=== PATIENT | male | born 1960 | race Caucasian/White ===

== ENCOUNTER 2018-09-09 04:05 | Emergency (ER) | payer BC ==
[2018-09-09] MEDS ORDERED: Sodium Chloride 0.9% 1,000 ML IV ONE (04:24)
[2018-09-09] MEDS ORDERED: fentaNYL 100 MCG/2 ML SDV IVPUSH SCH (04:30)
--- NOTE | 2018-09-09 04:30 | EDM.PDOC ---
ED HPI GENERAL MEDICAL PROBLEM - General Chief Complaint: General Stated Complaint: abd pain Time Seen by Provider: 09/09/18 04:18 Source of Information: Reports: Patient History Limitations: Reports: No Limitations - History of Present Illness INITIAL COMMENTS - FREE TEXT/NARRATIVE: Duy is a 58 year old male who presents to the ED with c/o generalized abdominal pain. He reports he had episode last night about 0100 in which he experienced short episode of sharp pain. Reports this went away and his whole abdomen seemed to ache. Reports continued throughout the day, but wasn't severe. Reports then around 0300 this morning experienced the same sharp pain, but it seemed to last a little longer. He reports he typically only eats 1 meal/ day and the pain started about the same time the last few nights following what he ate. Reports he was a little nauseated and felt like he could vomit, but he hasn't. Denies any diarrhea. LBM was yesterday morning. Reports he has daily bowel movements in the mornings. Has not had any fever or chills. Reports he was able to eat ok throughout the day. Denies any significant PMH. Does report ETOH use 3-4x/month with heavy drinking. Onset Date: 09/09/18 Onset Time: 03:00 Duration: Intermittent Location: Reports: Abdomen (generalized) Quality: Reports: Ache, Sharp Severity: Severe Improves with: Reports: None Worsens with: Reports: None Associated Symptoms: Reports: Nausea/Vomiting. Denies: Confusion, Chest Pain, Cough, cough w sputum, Diaphoresis, Fever/Chills, Headaches, Loss of Appetite, Malaise, Rash, Seizure, Shortness of Breath, Syncope, Weakness Abdominal Pain Score (Numeric/FACES): 7 - Related Data Allergies Allergy/AdvReac Type Severity Reaction Status Date / Time No Known Allergies Allergy Verified 09/09/18 04:09 Home Meds: Home Meds Allopurinol 100 mg PO DAILY 08/31/13 [History] Lisinopril/Hydrochlorothiazide [Lisinopril-Hctz 10-12.5 mg Tab] 1 mg PO DAILY [History] amLODIPine Besylate [Amlodipine Besylate] 10 mg PO DAILY 08/31/13 [History] atorvaSTATin [Lipitor] 20 mg PO BEDTIME #30 tab 05/12/14 [Rx] oxyCODONE 5 mg PO Q4H PRN #20 tab 09/09/18 [Rx] Past Medical History Cardiovascular History: Reports: High Cholesterol, Hypertension Musculoskeletal History: Reports: Gout - Past Surgical History Musculoskeletal Surgical History: Reports: Shoulder Surgery Social & Family History - Family History Family Medical History: Noncontributory - Caffeine Use Caffeine Use: Reports: Soda - Alcohol Use Days Per Week of Alcohol Use: 2 Number of Drinks Per Day: 8 Total Drinks Per Week: 16 - Recreational Drug Use Recreational Drug Use: No ED ROS GENERAL - Review of Systems Review Of Systems: ROS reveals no pertinent complaints other than HPI. ED EXAM, GENERAL - Physical Exam Exam: See Below Exam Limited By: No Limitations General Appearance: Alert, WD/WN, No Apparent Distress Eye Exam: Bilateral Eye: EOMI, Normal Fundi, Normal Inspection, PERRL Head: Atraumatic, Normocephalic Neck: Normal Inspection, Supple, Non-Tender, Full Range of Motion Respiratory/Chest: No Respiratory Distress, Lungs Clear, Normal Breath Sounds, No Accessory Muscle Use, Chest Non-Tender Cardiovascular: Normal Peripheral Pulses, Regular Rate, Rhythm, No Edema, No Gallop, No JVD, No Murmur, No Rub GI/Abdominal: Normal Bowel Sounds, No Organomegaly, No Distention, No Mass, Guarding, Tender (generalized), Hernia (umbilical). No: Hepatomegaly Back Exam: Normal Inspection, Full Range of Motion. No: CVA Tenderness (L), CVA Tenderness (R) Extremities: Normal Inspection, Normal Range of Motion, Non-Tender, Normal Capillary Refill, No Pedal Edema Neurological: Alert, Oriented, CN II-XII Intact, Normal Cognition, Normal Gait, Normal Reflexes, No Motor/Sensory Deficits Psychiatric: Normal Affect, Normal Mood Skin Exam: Warm, Dry, Intact, Normal Color, No Rash Lymphatic: No Adenopathy Course - Vital Signs Last Recorded V/S: Last Vital Signs Temp 96.8 F 09/09/18 12:30 Pulse 70 09/09/18 12:30 Resp 18 09/09/18 12:30 BP 132/72 09/09/18 12:30 Pulse Ox 100 09/09/18 12:30 - Orders/Labs/Meds Orders: Active Orders 24 hr Category Date Time Status Abdomen Comp [US] Stat Exams 05/20/19 04:51 Taken Abdomen Pelvis w Cont [CT] Stat Exams 09/09/18 11:34 Taken HEPATITIS PANEL (4) [REF] Stat Lab 09/09/18 13:39 Received UA RFX TRENT AND CULT IF INDIC [URIN] Stat Lab 09/09/18 04:36 Ordered UA W/MICROSCOPIC [URIN] Stat Lab 09/09/18 04:36 Ordered Labs: Laboratory Tests 09/09/18 09/09/18 09/09/18 Range/Units 04:09 04:09 04:24 WBC 9.1 (5.0-10.0) 10^3/uL RBC 4.83 (4.50-6.00) 10^6/uL Hgb 15.8 (14.0-18.0) g/dL Hct 44.6 (40.0-54.0) % MCV 92.3 (82.0-94.0) fL MCH 32.7 H (27.0-32.0) pg MCHC 35.4 (33.0-38.0) g/dL RDW Coeff of [place] 13.4 (11.0-15.0) % Plt Count 208 (150-400) 10^3/uL Neut % (Auto) 73.2 (35-85) % Lymph % (Auto) 15.1 (10-55) % [place] % (Auto) 9.2 (0-16) % Eos % (Auto) 2.2 (0-5) % Baso % (Auto) 0.3 (0-3) % Neut # (Auto) 6.65 (1.80-7.00) 10^3/uL Lymph # (Auto) 1.37 (1.00-4.80) 10^3/uL [place] # (Auto) 0.84 H (0.00-0.80) 10^3/uL Eos # (Auto) 0.20 (0.00-0.45) 10^3/uL Baso # (Auto) 0.03 10^3/uL Sodium 139 (136-145) mEq/L Potassium 3.7 (3.5-5.0) mEq/L Chloride 101 (98-106) mEq/L Carbon Dioxide 27 (21-32) mmol/L BUN 14 (7-18) mg/dL Creatinine 1.4 H (0.7-1.3) mg/dL Est Cr Clr Drug Dosing 63.13 mL/min Estimated GFR (MDRD) 52 L (>=60) mL/min Glucose 145 H D (75-99) mg/dL Calcium 9.4 (8.4-10.1) mg/dL Total Bilirubin 3.6 H (0.0-1.0) mg/dL AST 397 H* (15-37) U/L ALT 341 H* (12-78) U/L Alkaline Phosphatase 146 H (46-116) U/L Troponin I < 0.017 (0.00-0.06) ng/mL C-Reactive Protein < 0.2 L (0.2-0.8) mg/dL Total Protein 7.4 (6.4-8.2) g/dL Albumin 4.1 (3.4-5.0) g/dL Amylase 45 (25-115) U/L Lipase 221 (73-393) U/L Urine Color Dark yellow (YELLOW) Urine Appearance Clear (CLEAR) Urine pH 5.5 (4.5-8.0) Ur Specific [place] 1.025 H (1.003-1.020) Urine Protein Trace H (NEGATIVE) mg/dL Urine Glucose (UA) 100 H (NEGATIVE) mg/dL Urine Ketones Trace H (NEGATIVE) mg/dL Urine Occult Blood Negative (NEGATIVE) Urine Nitrite Negative (NEGATIVE) Urine Bilirubin Moderate H (NEGATIVE) Urine Urobilinogen 2.0 H (0.2-1.0) EU/dL Ur Leukocyte Esterase Negative (NEGATIVE) Urine RBC Not seen (0-5) /HPF Urine WBC Not seen (0-5) /HPF Ur Squamous Epith Cells Occasional H (NOT SEEN) /HPF Urine Bacteria Occasional H (NOT SEEN) /HPF Urine Mucus Occasional H (NOT SEEN) /HPF Ethyl Alcohol < 3 (0-3) mg/dL Meds: Medications Discontinued Medications Generic Name Dose Route Start Last Admin Trade Name Freq PRN Reason Stop Dose Admin Barium Sulfate 900 ml 09/09/18 13:03 09/09/18 14:51 Readi-Cat 2 PO 09/09/18 13:04 900 ml ONETIME ONE Administration Fentanyl 25 mcg 09/09/18 04:30 09/09/18 04:37 Sublimaze IVPUSH 25 mcg STAT JAI Administration Fentanyl 25 - 50 mcg 09/09/18 04:57 09/09/18 05:21 Sublimaze IVPUSH 50 mcg Q2H PRN Administration Pain Sodium Chloride 1,000 mls @ 999 mls/hr 09/09/18 04:24 09/09/18 04:38 Normal Saline IV 09/09/18 05:24 999 mls/hr .BOLUS ONE Administration Levofloxacin/Dextrose 500 mg/ 100 mls @ 100 mls/hr 09/09/18 05:00 09/09/18 05 :20 Premix IV 100 mls/hr Q24H JAI Administration Metronidazole 500 mg/ Premix 100 mls @ 100 mls/hr 09/09/18 05:00 09/09/18 13: 29 IV Not Given Q8H JAI Sodium Chloride 1,000 mls @ 150 mls/hr 09/09/18 05:00 09/09/18 05:21 Normal Saline IV 150 mls/hr ASDIRECTED JAI Administration Levofloxacin/Dextrose Confirm 09/09/18 05:18 09/09/18 05:28 Levaquin In D5w 500 Mg/100 Ml Administered 09/09/18 05:19 Not Given Dose 100 mls @ as directed IV .STK-MED ONE Iopamidol 200 ml 09/09/18 13:01 09/09/18 14:40 Isovue-370 (76%) IVPUSH 09/09/18 13:02 152 ml ONETIME ONE Administration - Re-Assessments/Exams Free Text/Narrative Re-Assessment/Exam: 09/09/18 04:54 Discussed lab results with patient. Patients liver enzymes and bilirubin critically elevated. Will keep patient in extended ED for abdominal US. Patient scheduled at 0900. Will keep NPO until then. 09/09/18 11:00 US results obtained. No evidence of cholecystitis or obstruction. Does show marked fatty infiltration of liver and moderate sized mural nodule of the gallbladder wall. Will proceed with CT abdomen/pelvis. Patient to drink oral contrast so will exceed 6 hr extended ED time frame. 09/09/18 13:15 Patient kept in extended ED for longer than expected due to need for further testing. CT abd/pelvis will be performed at 2:30 to allow time for oral contrast. 09/09/18 15:30 CT abdomen/pelvis results obtained. CT negative for acute findings. Does show fatty liver. Discussed results with patient. After further discussion with patient and patients daughter, it is confirmed that patient has strong history of ETOH abuse. He initially told me he drinks 3-4 days/month. Daughter reports it is 3-4 x/month that last a week at a time. He reports he has been sober for the past week as he was planning to go to treatment. Given this scenario, likely acute alcoholic hepatitis. Discussed case with Dr. Beverly, who recommends referral to general surgery for cholecystectomy given nodule, and further confirmed that patient has had ETOH problem for number of years, so likely just acute alcoholic hepatitis. Will refer to Dr. Viera (general surgeon) for possible cholecystectomy and liver biopsy. Did obtain hepatitis panel as well, but less favored given scenario. Strongly recommended to patient that he abstain from ETOH. Patient verbalized understanding and reports he is motivated to quit and this is "wake up call" for him. Departure - Departure Time of Disposition: 16:28 Disposition: Home, Self-Care 01 Condition: Good, Fair Clinical Impression: Alcoholic hepatitis Qualifiers: Ascites presence: without ascites Qualified Code(s): K70.10 - Alcoholic hepatitis without ascites - Discharge Information *PRESCRIPTION DRUG MONITORING PROGRAM REVIEWED*: Not Applicable *COPY OF PRESCRIPTION DRUG MONITORING REPORT IN PATIENT ESTEPHANIA: Not Applicable Prescriptions: oxyCODONE 5 mg PO Q4H PRN #20 tab PRN Reason: Pain Instructions: Alcoholic Liver Disease, [id number] Referrals: PCP,None [Ordering Only Provider] - Forms: ED Department Discharge Additional Instructions: - No Tylenol (acetaminophen) - Abstain from alcohol - Push fluids - Oxycodone 1 tab every 4 hours as needed for pain - Follow up with PCP Ag KULKARNI in the next few weeks to recheck liver enzymes - We will contact you tomorrow with f/u instructions for Dr. Viera ([place] [facility] [place] - My Orders Last 24 Hours: My Active Orders 09/09/18 04:36 UA RFX TRENT AND CULT IF INDIC [URIN] Stat UA W/MICROSCOPIC [URIN] Stat 09/09/18 04:51 Abdomen Comp [US] Stat 09/09/18 13:39 HEPATITIS PANEL (4) [REF] Stat - Assessment/Plan Last 24 Hours: My Active Orders 09/09/18 04:36 UA RFX TRENT AND CULT IF INDIC [URIN] Stat UA W/MICROSCOPIC [URIN] Stat 09/09/18 04:51 Abdomen Comp [US] Stat 09/09/18 13:39 HEPATITIS PANEL (4) [REF] Stat
[2018-09-09 04:37] LABS: CHLORIDE,CL 101 mEq/L (98-106); SODIUM,NA 139 mEq/L (136-145)
[2018-09-09] MEDS ORDERED: fentaNYL 100 MCG/2 ML SDV IVPUSH PRN (04:57)
[2018-09-09] MEDS ORDERED: Levofloxacin/Dextrose 5%-Water 500 MG in Premix Bag 1 BAG IV SCH (05:00)
[2018-09-09] MEDS ORDERED: Sodium Chloride 0.9% 1,000 ML IV SCH (05:00)
[2018-09-09] MEDS ORDERED: Levofloxacin/Dextrose 5%-Water 100 ML IV ONE (05:18)
[2018-09-09] MEDS: metroNIDAZOLE/Normal Saline 500 MG in Premix Bag 1 BAG IV SCH ×2 (05:20→13:29)
[2018-09-09] MEDS ORDERED: Iopamidol 755 Mg/ML 100 ML Bottle IVPUSH ONE (13:01)
[2018-09-09] MEDS ORDERED: Barium Sulfate Oral Susp 450 ML Bottle PO ONE (13:03)
== END 2018-09-09 16:35 | disposition home or self-care (01) ==
LOC: SUPCPDRO 04:05 → CC.ED 04:05
DX: K70.10 Alcoholic hepatitis without ascites (principal); I10 Essential (primary) hypertension; E78.00 Pure hypercholesterolemia, unspecified; Z79.899 Other long term (current) drug therapy
CPT/HCPCS: 36415; 74177; 76700; 80053; 80074; 81001; 82150; 83690; 84484; 85025; 86140; 96361; 96365; 96367; 96375; 96376; 99284-25; A4217; A9270-GY; G0480; J1956; J3010; J3490; J7030; Q9967

== ENCOUNTER 2018-09-22 19:26 | Emergency (ER) | payer BC ==
[2018-09-22] MEDS ORDERED: fentaNYL 100 MCG/2 ML SDV IVPUSH PRN (19:41)
[2018-09-22] MEDS ORDERED: Sodium Chloride 0.9% 1,000 ML IV SCH (19:45)
--- NOTE | 2018-09-22 19:55 | EDM.PDOC ---
ED HPI GENERAL MEDICAL PROBLEM - General Chief Complaint: Abdominal Pain Stated Complaint: ""Having abdominal pain" Time Seen by Provider: 09/22/18 19:50 Source of Information: Reports: Patient History Limitations: Reports: No Limitations - History of Present Illness INITIAL COMMENTS - FREE TEXT/NARRATIVE: Raghav is a 58 yo male who presents to the ED via private vehicle with concerns of worsening abdominal pain. States the pain started around 2:00pm this afternoon and has progressively worse. He underwent an umbilical hernia and cholecystectomy on Sunday with Dr. Viera in [place]. There was some concern of the common bile duct being occluded and he was told he made a ERCP if it didn't open up. He states he did well on Sunday. Denies any vomiting. Admits last bowel movement was Sunday and has been passing gas without complications. States the pain is constant and then will get a sharp, severe pain. Pain does radiate into his back. Onset: Today Duration: Constant, Getting Worse Location: Reports: Abdomen Quality: Reports: Ache, Sharp, Stabbing - Related Data Allergies Allergy/AdvReac Type Severity Reaction Status Date / Time No Known Allergies Allergy Verified 09/22/18 20:55 Home Meds: Home Meds Allopurinol 100 mg PO DAILY 08/31/13 [History] Lisinopril/Hydrochlorothiazide [Lisinopril-Hctz 10-12.5 mg Tab] 1 mg PO DAILY [History] amLODIPine Besylate [Amlodipine Besylate] 10 mg PO DAILY 08/31/13 [History] atorvaSTATin [Lipitor] 20 mg PO BEDTIME #30 tab 09/01/13 [Rx] oxyCODONE 5 mg PO Q4H PRN #20 tab 09/09/18 [Rx] Past Medical History Cardiovascular History: Reports: High Cholesterol, Hypertension Musculoskeletal History: Reports: Gout - Past Surgical History GI Surgical History: Reports: Cholecystectomy, Hernia, Abdominal Musculoskeletal Surgical History: Reports: Shoulder Surgery Social & Family History - Family History Family Medical History: Noncontributory - Caffeine Use Caffeine Use: Reports: Soda ED ROS GENERAL - Review of Systems Review Of Systems: See Below Constitutional: Reports: Decreased Appetite. Denies: Fever HEENT: Reports: No Symptoms Respiratory: Denies: Shortness of Breath Cardiovascular: Reports: No Symptoms, Lightheadedness. Denies: Chest Pain, Palpitations GI/Abdominal: Reports: Abdominal Pain, Constipation, Distension, Flatus, Nausea. Denies: Bloody Stool, Diarrhea, Hematochezia, Melena, Vomiting : Reports: No Symptoms Musculoskeletal: Reports: Shoulder Pain (bilateral shoulder pain) Skin: Reports: No Symptoms Neurological: Reports: No Symptoms ED EXAM, GI/ABD - Physical Exam Exam: See Below Exam Limited By: No Limitations General Appearance: Alert, WD/WN, Moderate Distress Eyes: Bilateral: Normal Appearance Ears: Normal External Exam, Hearing Grossly Normal Nose: Normal Inspection, No Blood Throat/Mouth: Normal Lips, Normal Teeth, Normal Gums, No Airway Compromise, Other (dry oropharnyx) Head: Atraumatic, Normocephalic Neck: Normal Inspection, Supple Respiratory/Chest: No Respiratory Distress, Lungs Clear, Normal Breath Sounds, No Accessory Muscle Use Cardiovascular: Regular Rate, Rhythm, No Edema, No Murmur GI/Abdominal Exam: No Abnormal Bruit, No Mass, Distended, Guarding, Rigid, Tender, Abnormal Bowel Sounds (hypoactive). No: Splenomegaly Extremities: Normal Inspection Neurological: Alert, Oriented Psychiatric: Normal Affect, Normal Mood Skin Exam: Warm, Dry, Intact, Normal Color, No Rash. No: Jaundice Course - Vital Signs Last Recorded V/S: Last Vital Signs Temp 100.2 F 09/22/18 19:30 Pulse 58 L 09/22/18 19:30 Resp 20 09/22/18 19:30 BP 122/70 09/22/18 19:30 Pulse Ox 95 09/22/18 19:30 - Orders/Labs/Meds Orders: Active Orders 24 hr Category Date Time Status Abdomen 2V AP Flat Upright [CR] Stat Exams 09/22/18 20:01 Ordered Sodium Chloride 0.9% [Normal Saline] 1,000 ml Med 09/22/18 21:02 Active IV .BOLUS Sodium Chloride 0.9% [Normal Saline] 1,000 ml Med 09/22/18 19:45 Active IV ASDIRECTED Medication Orders Sodium Chloride (Normal Saline) 1,000 mls @ 999 mls/hr IV ASDIRECTED JAI Last Admin: 09/22/18 19:56 Dose: 999 mls/hr Sodium Chloride (Normal Saline) 1,000 mls @ 999 mls/hr IV .BOLUS ONE Stop: 09/22/18 22:02 Labs: Laboratory Tests 09/22/18 09/22/18 09/22/18 Range/Units 19:51 19:51 19:51 WBC 8.0 (5.0-10.0) 10^3/uL RBC 4.53 (4.50-6.00) 10^6/uL Hgb 15.0 (14.0-18.0) g/dL Hct 43.0 (40.0-54.0) % MCV 94.9 H (82.0-94.0) fL MCH 33.1 H (27.0-32.0) pg MCHC 34.9 (33.0-38.0) g/dL RDW Coeff of [place] 13.0 (11.0-15.0) % Plt Count 206 (150-400) 10^3/uL Neut % (Auto) 63.9 (35-85) % Lymph % (Auto) 18.5 (10-55) % [place] % (Auto) 14.8 (0-16) % Eos % (Auto) 2.0 (0-5) % Baso % (Auto) 0.8 (0-3) % Neut # (Auto) 5.12 (1.80-7.00) 10^3/uL Lymph # (Auto) 1.48 (1.00-4.80) 10^3/uL [place] # (Auto) 1.18 H (0.00-0.80) 10^3/uL Eos # (Auto) 0.16 (0.00-0.45) 10^3/uL Baso # (Auto) 0.06 10^3/uL Sodium 139 (136-145) mEq/L Potassium 3.5 (3.5-5.0) mEq/L Chloride 98 (98-106) mEq/L Carbon Dioxide 29 (21-32) mmol/L BUN 15 (7-18) mg/dL Creatinine 1.1 (0.7-1.3) mg/dL Est Cr Clr Drug Dosing TNP Estimated GFR (MDRD) > 60 (>=60) mL/min Glucose 114 H (75-99) mg/dL Lactic Acid 1.0 (0.4-2.0) mmol/L Calcium 9.4 (8.4-10.1) mg/dL Magnesium (1.8-2.4) mg/dL Total Bilirubin 5.6 H (0.0-1.0) mg/dL AST 350 H* (15-37) U/L ALT 505 H* (12-78) U/L Alkaline Phosphatase 307 H (46-116) U/L C-Reactive Protein 0.6 (0.2-0.8) mg/dL Total Protein 6.7 (6.4-8.2) g/dL Albumin 3.8 (3.4-5.0) g/dL Amylase 679 H (25-115) U/L Lipase 60961 H (73-393) U/L Urine Color (YELLOW) Urine Appearance (CLEAR) Urine pH (4.5-8.0) Ur Specific [place] (1.003-1.020) Urine Protein (NEGATIVE) mg/dL Urine Glucose (UA) (NEGATIVE) mg/dL Urine Ketones (NEGATIVE) mg/dL Urine Occult Blood (NEGATIVE) Urine Nitrite (NEGATIVE) Urine Bilirubin (NEGATIVE) Urine Urobilinogen (0.2-1.0) EU/dL Ur Leukocyte Esterase (NEGATIVE) 09/22/18 09/22/18 Range/Units 19:51 20:37 WBC (5.0-10.0) 10^3/uL RBC (4.50-6.00) 10^6/uL Hgb (14.0-18.0) g/dL Hct (40.0-54.0) % MCV (82.0-94.0) fL MCH (27.0-32.0) pg MCHC (33.0-38.0) g/dL RDW Coeff of [place] (11.0-15.0) % Plt Count (150-400) 10^3/uL Neut % (Auto) (35-85) % Lymph % (Auto) (10-55) % [place] % (Auto) (0-16) % Eos % (Auto) (0-5) % Baso % (Auto) (0-3) % Neut # (Auto) (1.80-7.00) 10^3/uL Lymph # (Auto) (1.00-4.80) 10^3/uL [place] # (Auto) (0.00-0.80) 10^3/uL Eos # (Auto) (0.00-0.45) 10^3/uL Baso # (Auto) 10^3/uL Sodium (136-145) mEq/L Potassium (3.5-5.0) mEq/L Chloride (98-106) mEq/L Carbon Dioxide (21-32) mmol/L BUN (7-18) mg/dL Creatinine (0.7-1.3) mg/dL Est Cr Clr Drug Dosing Estimated GFR (MDRD) (>=60) mL/min Glucose (75-99) mg/dL Lactic Acid (0.4-2.0) mmol/L Calcium (8.4-10.1) mg/dL Magnesium 1.9 (1.8-2.4) mg/dL Total Bilirubin (0.0-1.0) mg/dL AST (15-37) U/L ALT (12-78) U/L Alkaline Phosphatase (46-116) U/L C-Reactive Protein (0.2-0.8) mg/dL Total Protein (6.4-8.2) g/dL Albumin (3.4-5.0) g/dL Amylase (25-115) U/L Lipase (73-393) U/L Urine Color Yellow (YELLOW) Urine Appearance Clear (CLEAR) Urine pH 5.5 (4.5-8.0) Ur Specific [place] <= 1.005 (1.003-1.020) Urine Protein Negative (NEGATIVE) mg/dL Urine Glucose (UA) Negative (NEGATIVE) mg/dL Urine Ketones Negative (NEGATIVE) mg/dL Urine Occult Blood Negative (NEGATIVE) Urine Nitrite Negative (NEGATIVE) Urine Bilirubin Small H (NEGATIVE) Urine Urobilinogen 4.0 H (0.2-1.0) EU/dL Ur Leukocyte Esterase Negative (NEGATIVE) Meds: Medications Generic Name Dose Route Start Last Admin Trade Name Freq PRN Reason Stop Dose Admin Sodium Chloride 1,000 mls @ 999 mls/hr 09/22/18 19:45 09/22/18 19:56 Normal Saline IV 999 mls/hr ASDIRECTED JAI Administration Sodium Chloride 1,000 mls @ 999 mls/hr 09/22/18 21:02 Normal Saline IV 09/22/18 22:02 .BOLUS ONE Discontinued Medications Generic Name Dose Route Start Last Admin Trade Name Freq PRN Reason Stop Dose Admin Fentanyl 25 mcg 09/22/18 19:41 09/22/18 19:56 Sublimaze IVPUSH 25 mcg Q6H PRN Administration Pain/Fever Fentanyl 50 mcg 09/22/18 21:04 Sublimaze IVPUSH 09/22/18 21:05 ONETIME ONE Fentanyl 50 mcg 09/22/18 21:04 Sublimaze IVPUSH 09/22/18 21:05 ONETIME ONE Departure - Departure Time of Disposition: 21:16 Disposition: DC/Tfer to [facility] 02 Clinical Impression: Acute pancreatitis, Status post cholecystectomy - Discharge Information Forms: ED Department Discharge - Problem List & Annotations (1) Acute pancreatitis SNOMED Code(s): 791408534 Code(s): K85.90 - ACUTE PANCREATITIS WITHOUT NECROSIS OR INFECTION, UNSP Status: Acute Qualifiers: Pancreatitis type: biliary Acute pancreatitis complication: no infection or necrosis Qualified Code(s): K85.10 - Biliary acute pancreatitis without necrosis or infection (2) Status post cholecystectomy SNOMED Code(s): 757802869, 14400566, 355749427 Code(s): Z90.49 - ACQUIRED ABSENCE OF OTHER SPECIFIED PARTS OF DIGESTIVE TRACT Status: Acute - My Orders Last 24 Hours: My Active Orders 09/22/18 19:45 Sodium Chloride 0.9% [Normal Saline] 1,000 ml IV ASDIRECTED 09/22/18 20:01 Abdomen 2V AP Flat Upright [CR] Stat 09/22/18 21:02 Sodium Chloride 0.9% [Normal Saline] 1,000 ml IV .BOLUS - Assessment/Plan Last 24 Hours: My Active Orders 09/22/18 19:45 Sodium Chloride 0.9% [Normal Saline] 1,000 ml IV ASDIRECTED 09/22/18 20:01 Abdomen 2V AP Flat Upright [CR] Stat 09/22/18 21:02 Sodium Chloride 0.9% [Normal Saline] 1,000 ml IV .BOLUS Plan: Consulted with Dr. English, hospitalist, [facility] after concerns of occlusion of the common bile duct. Dr. English kindly accepted transfer as he agreed Raghav will likely need an ERCP. We will transfer via ALS for pain control and IV fluids en route. Discussed risks and benefits of transfer with Raghav. Risks of transfer: worsening of pain/condition or MVA. Benefits of transfer: appropriate diagnostics/specialists, surgical intervention if needed, ERCP, and improvement of condition. Risks of non-transfer: worsening of conditio, no appropriate specialists or intervention if needed. Benefits of non-transfer: staying in a familiar environment and close to home. Raghav verbalized understanding and is in agreement with transfer.
[2018-09-22 20:36] LABS: CHLORIDE,CL 98 mEq/L (98-106); SODIUM,NA 139 mEq/L (136-145)
[2018-09-22] MEDS ORDERED: Sodium Chloride 0.9% 1,000 ML IV ONE (21:02)
[2018-09-22] MEDS ORDERED: fentaNYL 100 MCG/2 ML SDV IVPUSH ONE ×2 (21:04→21:19)
[2018-09-22] MEDS: fentaNYL 100 MCG/2 ML SDV IVPUSH ONE ×2 (21:14→21:23)
== END 2018-09-22 21:50 ==
LOC: CC.ED 19:26
DX: K85.90 Acute pancreatitis without necrosis or infection, unspecified (principal); Z90.49 Acquired absence of other specified parts of digestive tract; I10 Essential (primary) hypertension; E78.00 Pure hypercholesterolemia, unspecified; Z79.899 Other long term (current) drug therapy
CPT/HCPCS: 36415; 74019; 80053; 81003; 82150; 83605; 83690; 83735; 85025; 86140; 96361; 96374; 96376; 99285; J3010; J7030

== ENCOUNTER 2020-06-22 00:35 | Observation (INO) | payer BC ==
[~2020-06-22 00:35] MED LIST: Ondansetron 4 MG/2 ML SDV ONE
--- NOTE | 2020-06-22 00:47 | EDM.PDOC ---
ED HPI GENERAL MEDICAL PROBLEM - General Chief Complaint: Trauma Stated Complaint: trauma Time Seen by Provider: 06/22/20 00:35 Source of Information: Reports: Patient, EMS History Limitations: Reports: No Limitations - History of Present Illness INITIAL COMMENTS - FREE TEXT/NARRATIVE: Duy is a 59 yo male who presents to the ED via EMS after sustaining a fall down approximately 6 steps. Reports his glasses were fogged up after coming in from outside and he missed a step due to this. He reports he has been drinking whiskey tonight. Reports last drink was at 5 pm and is unsure how much he has drank this evening. He denies hitting his head. Denies LOC, however family report he did have 1-2 second brief episodes of LOC once they arrived at his house. EMS denies any LOC while on scene or enroute. GCS 15 upon arrival. Does not appear intoxicated. He reports due to his left leg pain, he had to crawl to his bedroom to get his phone to call his sister. He denies any complaints other than left knee pain. Is unable to lift left leg or move leg without significant pain. C collar was placed upon arrival to ED as trauma code was called. Patient was moving neck without difficulty and denied pain, however was intoxicated. Sent for head and c-spine CT. Patient with swelling noted to proximal medial aspect of left knee, very tender to touch. Sensation and circulation intact throughout. Palpation throughout reveals no other areas of tenderness. He is alert and oriented and talking in full complete sentences. Onset: Today, Sudden Onset Date: 06/21/20 Onset Time: 23:30 Duration: Constant Location: Reports: Lower Extremity, Left Quality: Reports: Sharp, Throbbing Severity: Moderate Associated Symptoms: Reports: No Other Symptoms. Denies: Confusion, Chest Pain, Cough, cough w sputum, Diaphoresis, Fever/Chills, Headaches, Loss of Appetite, Malaise, Nausea/Vomiting, Rash, Seizure, Shortness of Breath, Syncope, Weakness Left Knee Pain Score (Numeric/FACES): 5 - Related Data Allergies Allergy/AdvReac Type Severity Reaction Status Date / Time No Known Allergies Allergy Verified 06/22/20 00:40 Home Meds: Home Meds allopurinoL [Allopurinol] 100 mg PO DAILY 08/31/13 [History] amLODIPine Besylate [Amlodipine Besylate] 10 mg PO DAILY 08/31/13 [History] Furosemide [Lasix] 40 mg PO DAILY PRN 06/22/20 [History] Lisinopril/Hydrochlorothiazide [Lisinopril-Hctz 20-25 mg Tab] 1 each PO DAILY 06/22/20 [History] Omeprazole 40 mg PO DAILY 06/22/20 [History] atorvaSTATin [Lipitor] 10 mg PO DAILY 06/22/20 [History] oxyCODONE HCl/Acetaminophen [Percocet 5-325 mg Tablet] 1 each PO Q6H PRN #20 tablet 06/22/20 [Rx] Past Medical History Cardiovascular History: Reports: High Cholesterol, Hypertension Musculoskeletal History: Reports: Gout Psychiatric History: Reports: Addiction (ETOH) - Past Surgical History GI Surgical History: Reports: Cholecystectomy, Hernia, Abdominal Musculoskeletal Surgical History: Reports: Shoulder Surgery Social & Family History - Family History Family Medical History: No Pertinent Family History - Tobacco Use Tobacco Use Status *Q: Current Every Day Tobacco User Tobacco Use Within Last Twelve Months: Smokeless Tobacco - Caffeine Use Caffeine Use: Reports: Soda - Alcohol Use Alcohol Use History: Yes Alcohol Use Frequency: Binges, Daily Review of Systems - Review of Systems Review Of Systems: Comprehensive ROS is negative, except as noted in HPI. ED EXAM, GENERAL - Physical Exam Exam: See Below Exam Limited By: No Limitations General Appearance: Alert, WD/WN, No Apparent Distress Eye Exam: Bilateral Eye: EOMI, Normal Fundi, Normal Inspection, PERRL Ears: Normal External Exam, Normal Canal, Hearing Grossly Normal, Normal TMs Nose: Normal Inspection, Normal Mucosa, No Blood Throat/Mouth: Normal Inspection, Normal Lips, Normal Teeth, Normal Gums, Normal Oropharynx, Normal Voice, No Airway Compromise Head: Atraumatic, Normocephalic Neck: Normal Inspection, Supple, Non-Tender, Full Range of Motion Respiratory/Chest: No Respiratory Distress, Lungs Clear, Normal Breath Sounds, No Accessory Muscle Use, Chest Non-Tender Cardiovascular: Normal Peripheral Pulses, Regular Rate, Rhythm, No Edema, No Gallop, No JVD, No Murmur, No Rub Peripheral Pulses: 2+: Dorsalis Pedis (L), Dorsalis Pedis (R) GI/Abdominal: Normal Bowel Sounds, Soft, Non-Tender, No Organomegaly, No Distention, No Abnormal Bruit, No Mass, Pelvis Stable Back Exam: Normal Inspection, Full Range of Motion, NT Extremities: No Pedal Edema, Normal Capillary Refill, Leg Pain (left knee, swelling/lump noted to proximal medial aspect of knee), Limited Range of Motion (left knee- unable to flex/extend) Neurological: Alert, Oriented, Normal Cognition, No Motor/Sensory Deficits Psychiatric: Normal Affect, Normal Mood Skin Exam: Warm, Dry, Intact, Normal Color, No Rash, Other (left great toenail with dried blood underneath) Course - Vital Signs Last Recorded V/S: Last Vital Signs Temp 97.7 F 06/22/20 19:49 Pulse 83 06/22/20 19:49 Resp 16 06/22/20 19:49 BP 127/68 06/22/20 19:49 Pulse Ox 94 L 06/22/20 19:49 - Orders/Labs/Meds Orders: Active Orders 24 hr Category Date Time Status Cervical Spine wo Cont [CT] Routine Exams 06/22/20 Taken Head wo Cont [CT] Routine Exams 06/22/20 00:28 Taken Knee 1V or 2V Lt [CR] Stat Exams 06/22/20 00:37 Taken Medication Orders Acetaminophen (Tylenol) 650 mg PO Q4H PRN PRN Reason: Pain (Mild 1-3)/fever Allopurinol (Zyloprim) 100 mg PO DAILY [facility] Last Admin: 06/22/20 11:36 Dose: 100 mg Documented by: FABIO Amlodipine Besylate (Norvasc) 10 mg PO DAILY [facility] Last Admin: 06/22/20 11:35 Dose: 10 mg Documented by: FABIO Atorvastatin Calcium (Lipitor) 10 mg PO DAILY [facility] Last Admin: 06/22/20 11:37 Dose: 10 mg Documented by: FABIO Chlordiazepoxide HCl (Librium) 10 mg PO TID [facility] Last Admin: 06/22/20 19:21 Dose: 10 mg Documented by: Admin: 06/22/20 14:46 Dose: 10 mg Documented by: Admin: 06/22/20 11:47 Dose: 10 mg Documented by: FABIO Furosemide (Lasix) 40 mg PO DAILY PRN PRN Reason: Edema Hydromorphone HCl (Dilaudid) 0.5 mg IVPUSH Q2H PRN PRN Reason: Pain (severe 7-10) Last Admin: 06/22/20 06:35 Dose: 0.5 mg Documented by: Admin: 06/22/20 03:36 Dose: 0.5 mg Documented by: GARFIELD Promethazine HCl 6.25 mg/ (Sodium Chloride) 50.25 mls @ 100 mls/hr IV Q6H PRN PRN Reason: Nausea/Vomiting Lorazepam (Ativan) 1 mg IVPUSH Q2H PRN PRN Reason: Withdrawal Symptoms Last Admin: 06/22/20 19:21 Dose: 1 mg Documented by: Admin: 06/22/20 14:50 Dose: 1 mg Documented by: FABIO Lisinopril/Hydrochlorothiazide [Lisinopril-Hctz 20- 25 Mg Tab Ptom 0 each PO DAILY [facility] Last Admin: 06/22/20 11:34 Dose: 1 each Documented by: FABIO Omeprazole [ Omeprazole] 40 Mg Cap Ptom 0 mg PO DAILY [facility] Last Admin: 06/22/20 11:33 Dose: 40 mg Documented by: FABIO Ondansetron HCl (Zofran) 4 mg IV Q6H PRN PRN Reason: Nausea/Vomiting Last Admin: 06/22/20 06:39 Dose: 4 mg Documented by: GARFIELD Oxycodone/Acetaminophen (Percocet 325-5 Mg) 1 tab PO Q4H PRN PRN Reason: Pain (moderate 4-6) Last Admin: 06/22/20 14:46 Dose: 1 tab Documented by: FABIO Pantoprazole Sodium (Protonix Iv) 40 mg IVPUSH Q24H [facility] Labs: Laboratory Tests 06/22/20 06/22/20 06/22/20 Range/Units 00:30 00:41 00:41 WBC 6.6 (5.0-10.0) 10^3/uL RBC 4.38 L (4.50-6.00) 10^6/uL Hgb 14.3 (14.0-18.0) g/dL Hct 40.9 (40.0-54.0) % MCV 93.4 (82.0-94.0) fL MCH 32.6 H (27.0-32.0) pg MCHC 35.0 (33.0-38.0) g/dL RDW Coeff of Catrachita 14.3 (11.0-15.0) % Plt Count 196 (150-400) 10^3/uL Neut % (Auto) 54.0 (35-85) % Lymph % (Auto) 33.7 (10-55) % [place] % (Auto) 9.1 (0-16) % Eos % (Auto) 2.7 (0-5) % Baso % (Auto) 0.5 (0-3) % Neut # (Auto) 3.57 (1.80-7.00) 10^3/uL Lymph # (Auto) 2.23 (1.00-4.80) 10^3/uL [place] # (Auto) 0.60 (0.00-0.80) 10^3/uL Eos # (Auto) 0.18 (0.00-0.45) 10^3/uL Baso # (Auto) 0.03 10^3/uL Sodium 139 (136-145) mEq/L Potassium 3.4 L (3.5-5.0) mEq/L Chloride 98 (98-106) mEq/L Carbon Dioxide 21 (21-32) mmol/L BUN 17 (7-18) mg/dL Creatinine 1.6 H D (0.7-1.3) mg/dL Est Cr Clr Drug Dosing TNP Estimated GFR (MDRD) 44 L (>=60) mL/min Glucose 129 H (75-99) mg/dL Calcium 8.7 (8.4-10.1) mg/dL Total Bilirubin 1.3 H (0.0-1.0) mg/dL AST 53 H (15-37) U/L ALT 61 (12-78) U/L Alkaline Phosphatase 64 (46-116) U/L Total Protein 7.2 (6.4-8.2) g/dL Albumin 4.2 (3.4-5.0) g/dL Urine Color Dark yellow (YELLOW) Urine Appearance Slightly cloudy (CLEAR) Urine pH 5.0 (4.5-8.0) Ur Specific [place] 1.020 (1.003-1.020) Urine Protein Negative (NEGATIVE) mg/dL Urine Glucose (UA) Negative (NEGATIVE) mg/dL Urine Ketones Trace H (NEGATIVE) mg/dL Urine Occult Blood Trace-intact H (NEGATIVE) Urine Nitrite Negative (NEGATIVE) Urine Bilirubin Negative (NEGATIVE) Urine Urobilinogen 0.2 (0.2-1.0) EU/dL Ur Leukocyte Esterase Negative (NEGATIVE) U Hyaline Cast (Auto) Many H (NOT SEEN) /LPF Urine RBC 0-5 (0-5) /HPF Urine WBC 0-5 (0-5) /HPF Ethyl Alcohol 332 H* (0-3) mg/dL Meds: Medications Generic Name Dose Route Start Last Admin Trade Name Freq PRN Reason Stop Dose Admin Acetaminophen 650 mg 06/22/20 02:55 Tylenol PO Q4H PRN Pain (Mild 1-3)/fever Allopurinol 100 mg 06/22/20 09:30 06/22/20 11:36 Zyloprim PO 100 mg DAILY [facility]AI Administration Amlodipine Besylate 10 mg 06/22/20 11:15 06/22/20 11:35 Norvasc PO 10 mg DAILY [facility] Administration Atorvastatin Calcium 10 mg 06/22/20 10:45 06/22/20 11:37 Lipitor PO 10 mg DAILY [facility] Administration Chlordiazepoxide HCl 10 mg 06/22/20 11:30 06/22/20 19:21 Librium PO 10 mg TID [facility]AI Administration Furosemide 40 mg 06/22/20 09:23 Lasix PO DAILY PRN Edema Hydromorphone HCl 0.5 mg 06/22/20 02:55 06/22/20 06:35 Dilaudid IVPUSH 0.5 mg Q2H PRN Administration Pain (severe 7-10) Promethazine HCl 6.25 mg/ 50.25 mls @ 100 mls/hr 06/22/20 08:00 Sodium Chloride IV Q6H PRN Nausea/Vomiting Lorazepam 1 mg 06/22/20 14:38 06/22/20 19:21 Ativan IVPUSH 1 mg Q2H PRN Administration Withdrawal Symptoms Lisinopril/ 0 each 06/22/20 09:30 06/22/20 11:34 Hydrochlorothiazide PO 1 each [Lisinopril-Hctz 20- DAILY [facility]AI Administration 25 Mg Tab Ptom Omeprazole [ 0 mg 06/22/20 11:15 06/22/20 11:33 Omeprazole] 40 Mg PO 40 mg Cap Ptom DAILY [facility] Administration Ondansetron HCl 4 mg 06/22/20 02:55 06/22/20 06:39 Zofran IV 4 mg Q6H PRN Administration Nausea/Vomiting Oxycodone/Acetaminophen 1 tab 06/22/20 14:36 06/22/20 14:46 Percocet 325-5 Mg PO 1 tab Q4H PRN Administration Pain (moderate 4-6) Pantoprazole Sodium 40 mg 06/23/20 08:00 Protonix Iv IVPUSH Q24H [facility]AI Discontinued Medications Generic Name Dose Route Start Last Admin Trade Name Freq PRN Reason Stop Dose Admin Fentanyl 50 mcg 06/22/20 01:01 06/22/20 01:08 Fentanyl IVPUSH 06/22/20 01:02 50 mcg ONETIME ONE Administration Multivitamins/Minerals 10 ml/ 1,015.2 mls @ 100 mls/hr 06/22/20 01:19 06/22/20 02:11 Folic Acid 1 mg/ Thiamine HCl IV 06/22/20 11:28 100 mls/hr 100 mg/ Magnesium Sulfate 2 gm ONETIME ONE Administration / Sodium Chloride Promethazine HCl 6.25 mg/ 100.25 mls @ 400 mls/hr 06/22/20 01:20 06/22/20 01:35 Sodium Chloride IV 06/22/20 01:35 400 mls/hr ONETIME ONE Administration Ketorolac Tromethamine 30 mg 06/22/20 07:45 06/22/20 08:16 Toradol IVPUSH 06/27/20 07:39 30 mg Q6H JAI Administration Lorazepam 2 mg 06/22/20 02:55 06/22/20 10:05 Ativan IVPUSH 2 mg Q4H PRN Administration Withdrawal Symptoms Ondansetron HCl 4 mg 06/22/20 00:49 06/22/20 00:55 Zofran IVPUSH 06/22/20 00:50 4 mg NOW STA Administration Ondansetron HCl Confirm 06/22/20 00:31 06/22/20 01:11 Zofran Administered 06/22/20 00:32 Not Given Dose 4 mg .ROUTE .STK-MED ONE Pantoprazole Sodium 40 mg 06/22/20 02:55 06/22/20 03:23 Protonix Iv IVPUSH 40 mg Q24H [facility] Administration - Re-Assessments/Exams Free Text/Narrative Re-Assessment/Exam: 06/22/20 01:06 Patient had emesis while in CT. He reports he frequently vomits when he drinks. Departure - Departure Time of Disposition: 01:45 Disposition: Refer to Observation Clinical Impression: Fall down steps, Alcohol intoxication, Hypokalemia, Left knee injury - Discharge Information *PRESCRIPTION DRUG MONITORING PROGRAM REVIEWED*: Not Applicable *COPY OF PRESCRIPTION DRUG MONITORING REPORT IN PATIENT ESTEPHANIA: Not Applicable - Problem List & Annotations (1) Fall down steps SNOMED Code(s): 005251371 Code(s): W10.8XXA - FALL (ON) (FROM) OTHER STAIRS AND STEPS, INITIAL ENCOUNTER Status: Acute Current Visit: No Qualifiers: Encounter type: initial encounter Qualified Code(s): W10.8XXA - Fall (on) (from) other stairs and steps, initial encounter (2) Alcohol intoxication SNOMED Code(s): 41521719 Code(s): F10.929 - ALCOHOL USE, UNSPECIFIED WITH INTOXICATION, UNSPECIFIED Status: Acute Current Visit: No Qualifiers: Complication of substance-induced condition: uncomplicated Qualified Code(s): F10.920 - Alcohol use, unspecified with intoxication, uncomplicated (3) Hypokalemia SNOMED Code(s): 16333647 Code(s): E87.6 - HYPOKALEMIA Status: Acute Current Visit: No (4) Left knee injury SNOMED Code(s): 641555781 Code(s): S89.92XA - UNSPECIFIED INJURY OF LEFT LOWER LEG, INITIAL ENCOUNTER Status: Acute Current Visit: Yes - Problem List Review Problem List Initiated/Reviewed/Updated: Yes - My Orders Last 24 Hours: My Active Orders 06/22/20 Cervical Spine wo Cont [CT] Routine 06/22/20 00:28 Head wo Cont [CT] Routine 06/22/20 00:37 Knee 1V or 2V Lt [CR] Stat - Assessment/Plan Admission H&P: Please use this note as an admission H&P Last 24 Hours: My Active Orders 06/22/20 Cervical Spine wo Cont [CT] Routine 06/22/20 00:28 Head wo Cont [CT] Routine 06/22/20 00:37 Knee 1V or 2V Lt [CR] Stat Assessment:: Fall down steps ETOH Intoxication Hypokalemia Left Knee Injury Plan: Head and C Spine CT negative for acute findings. Left knee xray without acute abnormality as well. Patient does have significant pain to area and decreased ROM. Continues to be nauseated. He feels he is already withdrawing from ETOH as he last had drink at 5 pm. Patient will be admitted for neuro checks, pain management and detox. Will give banana bag. K is low at 3.4. Labs otherwise stable except ETOH 322. GCS remained 15 throughout stay. Patient transferred to floor in satisfactory condition.
[2020-06-22] MEDS ORDERED: Ondansetron 4 MG/2 ML SDV IVPUSH STA (00:49)
[2020-06-22 00:56] LABS: CHLORIDE,CL 98 mEq/L (98-106); SODIUM,NA 139 mEq/L (136-145)
[2020-06-22] MEDS ORDERED: fentaNYL 50 MCG/ML SDV IVPUSH ONE (01:01)
[2020-06-22] MEDS ORDERED: MVI, Adult with Vitamin K 10 ML, Folic Acid 1 MG, Thiamine 100 MG, Magnesium Sulfate 2 ... IV ONE ×5 (01:19)
[2020-06-22] MEDS ORDERED: Promethazine 6.25 MG in Sodium Chloride 0.9% 100 ML IV ONE (01:20)
[2020-06-22] MEDS ORDERED: Pantoprazole 40 MG Vial IVPUSH SCH (02:55)
[2020-06-22] MEDS ORDERED: Acetaminophen 325 MG Tab PO PRN (02:55)
[2020-06-22] MEDS ORDERED: LORazepam 2 MG/ML Syringe IVPUSH PRN (02:55)
[2020-06-22] MEDS: HYDROmorphone 1 MG/ML Syringe IVPUSH PRN ×2 (03:36→06:35)
[2020-06-22] MEDS: Ondansetron 4 MG/2 ML SDV IV PRN (06:39)
[2020-06-22] MEDS ORDERED: Ketorolac 30 MG/ML SDV IVPUSH SCH (07:45)
[2020-06-22] MEDS ORDERED: Promethazine 6.25 MG in Sodium Chloride 0.9% 50 ML IV PRN (08:00)
--- NOTE | 2020-06-22 10:14 | PCM.DCSUM1 ---
Discharge Summary - Discharge Data Discharge Date: 06/22/20 Discharge Disposition: Home, Self-Care 01 Condition: Good - Referral to Home Health Primary Care Physician: Vaibhav Beyer PA-C - Discharge Diagnosis/Problem(s) (1) Fall down steps SNOMED Code(s): 313812730 ICD Code: W10.8XXA - FALL (ON) (FROM) OTHER STAIRS AND STEPS, INITIAL ENCOUNTER Status: Acute Current Visit: No (2) Contusion of left knee SNOMED Code(s): 66540379 ICD Code: S80.02XA - CONTUSION OF LEFT KNEE, INITIAL ENCOUNTER Status: Acute Current Visit: No (3) Alcohol intoxication SNOMED Code(s): 46967639 ICD Code: F10.929 - ALCOHOL USE, UNSPECIFIED WITH INTOXICATION, UNSPECIFIED Status: Acute Current Visit: No (4) Hypokalemia SNOMED Code(s): 61725851 ICD Code: E87.6 - HYPOKALEMIA Status: Acute Current Visit: No - Patient Summary/Data Consults: Consultations 06/22/20 07:41 PT Evaluation and Treatment [CONS] Routine - Discharge Plan Home Medications: Home Meds allopurinoL [Allopurinol] 100 mg PO DAILY 08/31/13 [History] amLODIPine Besylate [Amlodipine Besylate] 10 mg PO DAILY 08/31/13 [History] Furosemide [Lasix] 40 mg PO DAILY PRN 06/22/20 [History] Lisinopril/Hydrochlorothiazide [Lisinopril-Hctz 20-25 mg Tab] 1 each PO DAILY 06/22/20 [History] Omeprazole 40 mg PO DAILY 06/22/20 [History] atorvaSTATin [Lipitor] 10 mg PO DAILY 06/22/20 [History] Forms: ED Department Discharge Referrals: PCP,None [Ordering Only Provider] - - Patient Data Vitals - Most Recent: Last Vital Signs Temp 99.1 F 06/22/20 07:34 Pulse 91 06/22/20 07:34 Resp 18 06/22/20 07:34 BP 111/50 L 06/22/20 07:34 Pulse Ox 94 L 06/22/20 07:34 Weight - Most Recent: 253 lb Lab Results - Last 24 hrs: Laboratory Results - last 24 hr 03/02/21 03/02/21 03/02/21 Range/Units 00:30 00:41 00:41 WBC 6.6 (5.0-10.0) 10^3/uL RBC 4.38 L (4.50-6.00) 10^6/uL Hgb 14.3 (14.0-18.0) g/dL Hct 40.9 (40.0-54.0) % MCV 93.4 (82.0-94.0) fL MCH 32.6 H (27.0-32.0) pg MCHC 35.0 (33.0-38.0) g/dL RDW Coeff of Catrachita 14.3 (11.0-15.0) % Plt Count 196 (150-400) 10^3/uL Neut % (Auto) 54.0 (35-85) % Lymph % (Auto) 33.7 (10-55) % [place] % (Auto) 9.1 (0-16) % Eos % (Auto) 2.7 (0-5) % Baso % (Auto) 0.5 (0-3) % Neut # (Auto) 3.57 (1.80-7.00) 10^3/uL Lymph # (Auto) 2.23 (1.00-4.80) 10^3/uL [place] # (Auto) 0.60 (0.00-0.80) 10^3/uL Eos # (Auto) 0.18 (0.00-0.45) 10^3/uL Baso # (Auto) 0.03 10^3/uL Sodium 139 (136-145) mEq/L Potassium 3.4 L (3.5-5.0) mEq/L Chloride 98 (98-106) mEq/L Carbon Dioxide 21 (21-32) mmol/L BUN 17 (7-18) mg/dL Creatinine 1.6 H D (0.7-1.3) mg/dL Est Cr Clr Drug Dosing TNP Estimated GFR (MDRD) 44 L (>=60) mL/min Glucose 129 H (75-99) mg/dL Calcium 8.7 (8.4-10.1) mg/dL Total Bilirubin 1.3 H (0.0-1.0) mg/dL AST 53 H (15-37) U/L ALT 61 (12-78) U/L Alkaline Phosphatase 64 (46-116) U/L Total Protein 7.2 (6.4-8.2) g/dL Albumin 4.2 (3.4-5.0) g/dL Urine Color Dark yellow (YELLOW) Urine Appearance Slightly cloudy (CLEAR) Urine pH 5.0 (4.5-8.0) Ur Specific [place] 1.020 (1.003-1.020) Urine Protein Negative (NEGATIVE) mg/dL Urine Glucose (UA) Negative (NEGATIVE) mg/dL Urine Ketones Trace H (NEGATIVE) mg/dL Urine Occult Blood Trace-intact H (NEGATIVE) Urine Nitrite Negative (NEGATIVE) Urine Bilirubin Negative (NEGATIVE) Urine Urobilinogen 0.2 (0.2-1.0) EU/dL Ur Leukocyte Esterase Negative (NEGATIVE) U Hyaline Cast (Auto) Many H (NOT SEEN) /LPF Urine RBC 0-5 (0-5) /HPF Urine WBC 0-5 (0-5) /HPF Ethyl Alcohol 332 H* (0-3) mg/dL 06/22/20 Range/Units 07:56 WBC (5.0-10.0) 10^3/uL RBC (4.50-6.00) 10^6/uL Hgb (14.0-18.0) g/dL Hct (40.0-54.0) % MCV (82.0-94.0) fL MCH (27.0-32.0) pg MCHC (33.0-38.0) g/dL RDW Coeff of [place] (11.0-15.0) % Plt Count (150-400) 10^3/uL Neut % (Auto) (35-85) % Lymph % (Auto) (10-55) % [place] % (Auto) (0-16) % Eos % (Auto) (0-5) % Baso % (Auto) (0-3) % Neut # (Auto) (1.80-7.00) 10^3/uL Lymph # (Auto) (1.00-4.80) 10^3/uL [place] # (Auto) (0.00-0.80) 10^3/uL Eos # (Auto) (0.00-0.45) 10^3/uL Baso # (Auto) 10^3/uL Sodium 140 (136-145) mEq/L Potassium 3.9 (3.5-5.0) mEq/L Chloride 100 (98-106) mEq/L Carbon Dioxide 25 (21-32) mmol/L BUN 18 (7-18) mg/dL Creatinine 1.3 (0.7-1.3) mg/dL Est Cr Clr Drug Dosing 67.15 Estimated GFR (MDRD) 57 L (>=60) mL/min Glucose 106 H (75-99) mg/dL Calcium 8.5 (8.4-10.1) mg/dL Total Bilirubin (0.0-1.0) mg/dL AST (15-37) U/L ALT (12-78) U/L Alkaline Phosphatase (46-116) U/L Total Protein (6.4-8.2) g/dL Albumin (3.4-5.0) g/dL Urine Color (YELLOW) Urine Appearance (CLEAR) Urine pH (4.5-8.0) Ur Specific [place] (1.003-1.020) Urine Protein (NEGATIVE) mg/dL Urine Glucose (UA) (NEGATIVE) mg/dL Urine Ketones (NEGATIVE) mg/dL Urine Occult Blood (NEGATIVE) Urine Nitrite (NEGATIVE) Urine Bilirubin (NEGATIVE) Urine Urobilinogen (0.2-1.0) EU/dL Ur Leukocyte Esterase (NEGATIVE) U Hyaline Cast (Auto) (NOT SEEN) /LPF Urine RBC (0-5) /HPF Urine WBC (0-5) /HPF Ethyl Alcohol (0-3) mg/dL Med Orders - Current: Current Medications Acetaminophen (Tylenol) 650 mg PO Q4H PRN PRN Reason: Pain (Mild 1-3)/fever Allopurinol (Zyloprim) 100 mg PO DAILY [facility] Amlodipine Besylate (Norvasc) 10 mg PO DAILY [facility] Atorvastatin Calcium (Lipitor) 10 mg PO DAILY [facility] Furosemide (Lasix) 40 mg PO DAILY PRN PRN Reason: Edema Hydromorphone HCl (Dilaudid) 0.5 mg IVPUSH Q2H PRN PRN Reason: Pain (severe 7-10) Last Admin: 06/22/20 06:35 Dose: 0.5 mg Documented by: Multivitamins/Minerals 10 ml/Folic Acid 1 mg/ Thiamine HCl 100 mg/ Magnesium Sulfate 2 gm / Sodium Chloride 1,015.2 mls @ 100 mls/hr IV ONETIME ONE Stop: 06/22/20 11:28 Last Admin: 06/22/20 02:11 Dose: 100 mls/hr Documented by: Promethazine HCl 6.25 mg/ (Sodium Chloride) 50.25 mls @ 100 mls/hr IV Q6H PRN PRN Reason: Nausea/Vomiting Ketorolac Tromethamine (Toradol) 30 mg IVPUSH Q6H [facility] [place] Stop: 06/27/20 07:39 Last Admin: 06/22/20 08:16 Dose: 30 mg Documented by: Lorazepam (Ativan) 2 mg IVPUSH Q4H PRN PRN Reason: Withdrawal Symptoms Last Admin: 06/22/20 10:05 Dose: 2 mg Documented by: Non-Formulary Medication (Lisinopril/Hydrochlorothiazide [Lisinopril-Hctz 20-25 Mg Tab]) 1 each PO DAILY [facility] [place] Non-Formulary Medication (Omeprazole [Omeprazole]) 40 mg PO DAILY [facility] [place] Ondansetron HCl (Zofran) 4 mg IV Q6H PRN PRN Reason: Nausea/Vomiting Last Admin: 06/22/20 06:39 Dose: 4 mg Documented by: Pantoprazole Sodium (Protonix Iv) 40 mg IVPUSH Q24H [facility] Last Admin: 06/22/20 03:23 Dose: 40 mg Documented by: Discontinued Medications Fentanyl (Fentanyl) 50 mcg IVPUSH ONETIME ONE Stop: 06/22/20 01:02 Last Admin: 06/22/20 01:08 Dose: 50 mcg Documented by: Promethazine HCl 6.25 mg/ (Sodium Chloride) 100.25 mls @ 400 mls/hr IV ONETIME ONE Stop: 06/22/20 01:35 Last Admin: 06/22/20 01:35 Dose: 400 mls/hr Documented by: Ondansetron HCl (Zofran) 4 mg IVPUSH NOW STA Stop: 06/22/20 00:50 Last Admin: 06/22/20 00:55 Dose: 4 mg Documented by: Ondansetron HCl (Zofran) Confirm Administered Dose 4 mg .ROUTE .STK-MED ONE Stop: 06/22/20 00:32 Last Admin: 06/22/20 01:11 Dose: Not Given Documented by:
[2020-06-22] MEDS: OMEPRAZOLE 40 MG PO SCH (11:33)
[2020-06-22] MEDS: HYDROCHLOROTHIAZIDE PO SCH (11:34)
[2020-06-22] MEDS: LISINOPRIL PO SCH (11:34)
[2020-06-22] MEDS: Allopurinol 100 MG Tab **PTOM PO SCH (11:36)
[2020-06-22] MEDS: ATORVASTATIN 10 MG PO SCH (11:37)
[2020-06-22] MEDS: chlordiazePOXIDE 10 MG Cap PO SCH ×3 (11:47→19:21)
[2020-06-22] MEDS: Acetaminophen/oxyCODONE 325-5 MG Tab PO PRN (14:46)
[2020-06-22] MEDS: LORazepam 2 MG/ML Syringe IVPUSH PRN ×2 (14:50→19:21)
--- NOTE | 2020-06-22 20:18 | PCM.PN ---
- General Info Date of Service: 06/22/20 Admission Dx/Problem (Free Text): Fall down steps ETOH Intoxication Left Knee Injury Subjective Update: Duy is a 59 yo male who was admitted observation status to the hospital yesterday evening after sustaining a fall down his steps. He was intoxicated at time of injury. This morning he is having increased pain in his left knee and unable to lift, flex or extend knee. There is indentation just above knee. Did have Dr. Beverly examine patient who reports patient has patellar rupture. PT was consulted and immobilizer placed. Patient reports improvement in pain following placement of immobilizer. He reports he continues to be nauseated and has sta rted with tremors in BUE. He reports feeling anxious. Feels he is already experiencing withdrawal from ETOH. He reports he is otherwise doing ok. Denies pain to any other area. Functional Status: Reports: Pain Controlled, Tolerating Diet, Urinating, New Symptoms (worsening knee pain and decreased ROM). Denies: Ambulating - Review of Systems General: Reports: No Symptoms HEENT: Reports: No Symptoms Pulmonary: Reports: No Symptoms Cardiovascular: Reports: No Symptoms Gastrointestinal: Reports: Nausea, Vomiting Genitourinary: Reports: No Symptoms Musculoskeletal: Reports: Leg Pain (left knee), Joint Swelling (left knee) Skin: Reports: No Symptoms Neurological: Reports: Tremors. Denies: Confusion, Dizziness, Headache, Numbness, Tingling Psychiatric: Reports: Anxiety - Patient Data Vitals - Most Recent: Last Vital Signs Temp 97.7 F 06/22/20 19:49 Pulse 83 06/22/20 19:49 Resp 16 06/22/20 19:49 BP 127/68 06/22/20 19:49 Pulse Ox 94 L 06/22/20 19:49 Weight - Most Recent: 253 lb Lab Results Last 24 Hours: Laboratory Results - last 24 hr 06/22/20 06/22/20 06/22/20 Range/Units 00:30 00:41 00:41 WBC 6.6 (5.0-10.0) 10^3/uL RBC 4.38 L (4.50-6.00) 10^6/uL Hgb 14.3 (14.0-18.0) g/dL Hct 40.9 (40.0-54.0) % MCV 93.4 (82.0-94.0) fL MCH 32.6 H (27.0-32.0) pg MCHC 35.0 (33.0-38.0) g/dL RDW Coeff of [place] 14.3 (11.0-15.0) % Plt Count 196 (150-400) 10^3/uL Neut % (Auto) 54.0 (35-85) % Lymph % (Auto) 33.7 (10-55) % [place] % (Auto) 9.1 (0-16) % Eos % (Auto) 2.7 (0-5) % Baso % (Auto) 0.5 (0-3) % Neut # (Auto) 3.57 (1.80-7.00) 10^3/uL Lymph # (Auto) 2.23 (1.00-4.80) 10^3/uL [place] # (Auto) 0.60 (0.00-0.80) 10^3/uL Eos # (Auto) 0.18 (0.00-0.45) 10^3/uL Baso # (Auto) 0.03 10^3/uL Sodium 139 (136-145) mEq/L Potassium 3.4 L (3.5-5.0) mEq/L Chloride 98 (98-106) mEq/L Carbon Dioxide 21 (21-32) mmol/L BUN 17 (7-18) mg/dL Creatinine 1.6 H D (0.7-1.3) mg/dL Est Cr Clr Drug Dosing TNP Estimated GFR (MDRD) 44 L (>=60) mL/min Glucose 129 H (75-99) mg/dL Calcium 8.7 (8.4-10.1) mg/dL Total Bilirubin 1.3 H (0.0-1.0) mg/dL AST 53 H (15-37) U/L ALT 61 (12-78) U/L Alkaline Phosphatase 64 (46-116) U/L Total Protein 7.2 (6.4-8.2) g/dL Albumin 4.2 (3.4-5.0) g/dL Urine Color Dark yellow (YELLOW) Urine Appearance Slightly cloudy (CLEAR) Urine pH 5.0 (4.5-8.0) Ur Specific [place] 1.020 (1.003-1.020) Urine Protein Negative (NEGATIVE) mg/dL Urine Glucose (UA) Negative (NEGATIVE) mg/dL Urine Ketones Trace H (NEGATIVE) mg/dL Urine Occult Blood Trace-intact H (NEGATIVE) Urine Nitrite Negative (NEGATIVE) Urine Bilirubin Negative (NEGATIVE) Urine Urobilinogen 0.2 (0.2-1.0) EU/dL Ur Leukocyte Esterase Negative (NEGATIVE) U Hyaline Cast (Auto) Many H (NOT SEEN) /LPF Urine RBC 0-5 (0-5) /HPF Urine WBC 0-5 (0-5) /HPF Ethyl Alcohol 332 H* (0-3) mg/dL 06/22/20 Range/Units 07:56 WBC (5.0-10.0) 10^3/uL RBC (4.50-6.00) 10^6/uL Hgb (14.0-18.0) g/dL Hct (40.0-54.0) % MCV (82.0-94.0) fL MCH (27.0-32.0) pg MCHC (33.0-38.0) g/dL RDW Coeff of [place] (11.0-15.0) % Plt Count (150-400) 10^3/uL Neut % (Auto) (35-85) % Lymph % (Auto) (10-55) % [place] % (Auto) (0-16) % Eos % (Auto) (0-5) % Baso % (Auto) (0-3) % Neut # (Auto) (1.80-7.00) 10^3/uL Lymph # (Auto) (1.00-4.80) 10^3/uL [place] # (Auto) (0.00-0.80) 10^3/uL Eos # (Auto) (0.00-0.45) 10^3/uL Baso # (Auto) 10^3/uL Sodium 140 (136-145) mEq/L Potassium 3.9 (3.5-5.0) mEq/L Chloride 100 (98-106) mEq/L Carbon Dioxide 25 (21-32) mmol/L BUN 18 (7-18) mg/dL Creatinine 1.3 (0.7-1.3) mg/dL Est Cr Clr Drug Dosing 67.15 Estimated GFR (MDRD) 57 L (>=60) mL/min Glucose 106 H (75-99) mg/dL Calcium 8.5 (8.4-10.1) mg/dL Total Bilirubin (0.0-1.0) mg/dL AST (15-37) U/L ALT (12-78) U/L Alkaline Phosphatase (46-116) U/L Total Protein (6.4-8.2) g/dL Albumin (3.4-5.0) g/dL Urine Color (YELLOW) Urine Appearance (CLEAR) Urine pH (4.5-8.0) Ur Specific [place] (1.003-1.020) Urine Protein (NEGATIVE) mg/dL Urine Glucose (UA) (NEGATIVE) mg/dL Urine Ketones (NEGATIVE) mg/dL Urine Occult Blood (NEGATIVE) Urine Nitrite (NEGATIVE) Urine Bilirubin (NEGATIVE) Urine Urobilinogen (0.2-1.0) EU/dL Ur Leukocyte Esterase (NEGATIVE) U Hyaline Cast (Auto) (NOT SEEN) /LPF Urine RBC (0-5) /HPF Urine WBC (0-5) /HPF Ethyl Alcohol (0-3) mg/dL Med Orders - Current: Current Medications Acetaminophen (Tylenol) 650 mg PO Q4H PRN PRN Reason: Pain (Mild 1-3)/fever Allopurinol (Zyloprim) 100 mg PO DAILY [facility] Last Admin: 06/22/20 11:36 Dose: 100 mg Documented by: Amlodipine Besylate (Norvasc) 10 mg PO DAILY [facility] Last Admin: 06/22/20 11:35 Dose: 10 mg Documented by: Atorvastatin Calcium (Lipitor) 10 mg PO DAILY [facility] Last Admin: 06/22/20 11:37 Dose: 10 mg Documented by: Chlordiazepoxide HCl (Librium) 10 mg PO TID [facility] Last Admin: 06/22/20 19:21 Dose: 10 mg Documented by: Furosemide (Lasix) 40 mg PO DAILY PRN PRN Reason: Edema Hydromorphone HCl (Dilaudid) 0.5 mg IVPUSH Q2H PRN PRN Reason: Pain (severe 7-10) Last Admin: 06/22/20 06:35 Dose: 0.5 mg Documented by: Promethazine HCl 6.25 mg/ (Sodium Chloride) 50.25 mls @ 100 mls/hr IV Q6H PRN PRN Reason: Nausea/Vomiting Lorazepam (Ativan) 1 mg IVPUSH Q2H PRN PRN Reason: Withdrawal Symptoms Last Admin: 06/22/20 19:21 Dose: 1 mg Documented by: Lisinopril/Hydrochlorothiazide [Lisinopril-Hctz 20- 25 Mg Tab Ptom 0 each PO DAILY [facility] Last Admin: 06/22/20 11:34 Dose: 1 each Documented by: Omeprazole [ Omeprazole] 40 Mg Cap Ptom 0 mg PO DAILY [facility] Last Admin: 06/22/20 11:33 Dose: 40 mg Documented by: Ondansetron HCl (Zofran) 4 mg IV Q6H PRN PRN Reason: Nausea/Vomiting Last Admin: 06/22/20 06:39 Dose: 4 mg Documented by: Oxycodone/Acetaminophen (Percocet 325-5 Mg) 1 tab PO Q4H PRN PRN Reason: Pain (moderate 4-6) Last Admin: 06/22/20 14:46 Dose: 1 tab Documented by: Pantoprazole Sodium (Protonix Iv) 40 mg IVPUSH Q24H [facility] Discontinued Medications Fentanyl (Fentanyl) 50 mcg IVPUSH ONETIME ONE Stop: 06/22/20 01:02 Last Admin: 06/22/20 01:08 Dose: 50 mcg Documented by: Multivitamins/Minerals 10 ml/Folic Acid 1 mg/ Thiamine HCl 100 mg/ Magnesium Sulfate 2 gm / Sodium Chloride 1,015.2 mls @ 100 mls/hr IV ONETIME ONE Stop: 06/22/20 11:28 Last Admin: 06/22/20 02:11 Dose: 100 mls/hr Documented by: Promethazine HCl 6.25 mg/ (Sodium Chloride) 100.25 mls @ 400 mls/hr IV ONETIME ONE Stop: 06/22/20 01:35 Last Admin: 06/22/20 01:35 Dose: 400 mls/hr Documented by: Ketorolac Tromethamine (Toradol) 30 mg IVPUSH Q6H [facility] Stop: 06/27/20 07:39 Last Admin: 06/22/20 08:16 Dose: 30 mg Documented by: Lorazepam (Ativan) 2 mg IVPUSH Q4H PRN PRN Reason: Withdrawal Symptoms Last Admin: 06/22/20 10:05 Dose: 2 mg Documented by: Ondansetron HCl (Zofran) 4 mg IVPUSH NOW STA Stop: 06/22/20 00:50 Last Admin: 06/22/20 00:55 Dose: 4 mg Documented by: Ondansetron HCl (Zofran) Confirm Administered Dose 4 mg .ROUTE .STK-MED ONE Stop: 06/22/20 00:32 Last Admin: 06/22/20 01:11 Dose: Not Given Documented by: Pantoprazole Sodium (Protonix Iv) 40 mg IVPUSH Q24H [facility] Last Admin: 06/22/20 03:23 Dose: 40 mg Documented by: - Exam Quality Assessment: DVT Prophylaxis General: Alert, Oriented, No Acute Distress Neck: Supple Lungs: Clear to Auscultation, Normal Respiratory Effort Cardiovascular: Regular Rate, Regular Rhythm GI/Abdominal Exam: Normal Bowel Sounds, Soft, Non-Tender, No Organomegaly, No Distention, No Abnormal Bruit, No Mass, Pelvis Stable Back Exam: Normal Inspection, Full Range of Motion Extremities: Normal Capillary Refill, Leg Pain (left knee), Limited Range of Motion (left knee- unable to lift LLE off from bed, unable to flex or extend left knee), Other (indentation noted just proximal to patella ) Peripheral Pulses: 2+: Dorsalis Pedis (L), Dorsalis Pedis (R) Skin: Warm, Dry, Intact Neurological: No New Focal Deficit Psy/Mental Status: Anxious, Withdrawal Symptoms (tremors, anxiety, N/V) - Patient Data Lab Results Last 24 hrs: Laboratory Results - last 24 hr 06/22/20 06/22/20 06/22/20 Range/Units 00:30 00:41 00:41 WBC 6.6 (5.0-10.0) 10^3/uL RBC 4.38 L (4.50-6.00) 10^6/uL Hgb 14.3 (14.0-18.0) g/dL Hct 40.9 (40.0-54.0) % MCV 93.4 (82.0-94.0) fL MCH 32.6 H (27.0-32.0) pg MCHC 35.0 (33.0-38.0) g/dL RDW Coeff of [place] 14.3 (11.0-15.0) % Plt Count 196 (150-400) 10^3/uL Neut % (Auto) 54.0 (35-85) % Lymph % (Auto) 33.7 (10-55) % [place] % (Auto) 9.1 (0-16) % Eos % (Auto) 2.7 (0-5) % Baso % (Auto) 0.5 (0-3) % Neut # (Auto) 3.57 (1.80-7.00) 10^3/uL Lymph # (Auto) 2.23 (1.00-4.80) 10^3/uL [place] # (Auto) 0.60 (0.00-0.80) 10^3/uL Eos # (Auto) 0.18 (0.00-0.45) 10^3/uL Baso # (Auto) 0.03 10^3/uL Sodium 139 (136-145) mEq/L Potassium 3.4 L (3.5-5.0) mEq/L Chloride 98 (98-106) mEq/L Carbon Dioxide 21 (21-32) mmol/L BUN 17 (7-18) mg/dL Creatinine 1.6 H D (0.7-1.3) mg/dL Est Cr Clr Drug Dosing TNP Estimated GFR (MDRD) 44 L (>=60) mL/min Glucose 129 H (75-99) mg/dL Calcium 8.7 (8.4-10.1) mg/dL Total Bilirubin 1.3 H (0.0-1.0) mg/dL AST 53 H (15-37) U/L ALT 61 (12-78) U/L Alkaline Phosphatase 64 (46-116) U/L Total Protein 7.2 (6.4-8.2) g/dL Albumin 4.2 (3.4-5.0) g/dL Urine Color Dark yellow (YELLOW) Urine Appearance Slightly cloudy (CLEAR) Urine pH 5.0 (4.5-8.0) Ur Specific [place] 1.020 (1.003-1.020) Urine Protein Negative (NEGATIVE) mg/dL Urine Glucose (UA) Negative (NEGATIVE) mg/dL Urine Ketones Trace H (NEGATIVE) mg/dL Urine Occult Blood Trace-intact H (NEGATIVE) Urine Nitrite Negative (NEGATIVE) Urine Bilirubin Negative (NEGATIVE) Urine Urobilinogen 0.2 (0.2-1.0) EU/dL Ur Leukocyte Esterase Negative (NEGATIVE) U Hyaline Cast (Auto) Many H (NOT SEEN) /LPF Urine RBC 0-5 (0-5) /HPF Urine WBC 0-5 (0-5) /HPF Ethyl Alcohol 332 H* (0-3) mg/dL 06/22/20 Range/Units 07:56 WBC (5.0-10.0) 10^3/uL RBC (4.50-6.00) 10^6/uL Hgb (14.0-18.0) g/dL Hct (40.0-54.0) % MCV (82.0-94.0) fL MCH (27.0-32.0) pg MCHC (33.0-38.0) g/dL RDW Coeff of [place] (11.0-15.0) % Plt Count (150-400) 10^3/uL Neut % (Auto) (35-85) % Lymph % (Auto) (10-55) % [place] % (Auto) (0-16) % Eos % (Auto) (0-5) % Baso % (Auto) (0-3) % Neut # (Auto) (1.80-7.00) 10^3/uL Lymph # (Auto) (1.00-4.80) 10^3/uL [place] # (Auto) (0.00-0.80) 10^3/uL Eos # (Auto) (0.00-0.45) 10^3/uL Baso # (Auto) 10^3/uL Sodium 140 (136-145) mEq/L Potassium 3.9 (3.5-5.0) mEq/L Chloride 100 (98-106) mEq/L Carbon Dioxide 25 (21-32) mmol/L BUN 18 (7-18) mg/dL Creatinine 1.3 (0.7-1.3) mg/dL Est Cr Clr Drug Dosing 67.15 Estimated GFR (MDRD) 57 L (>=60) mL/min Glucose 106 H (75-99) mg/dL Calcium 8.5 (8.4-10.1) mg/dL Total Bilirubin (0.0-1.0) mg/dL AST (15-37) U/L ALT (12-78) U/L Alkaline Phosphatase (46-116) U/L Total Protein (6.4-8.2) g/dL Albumin (3.4-5.0) g/dL Urine Color (YELLOW) Urine Appearance (CLEAR) Urine pH (4.5-8.0) Ur Specific [place] (1.003-1.020) Urine Protein (NEGATIVE) mg/dL Urine Glucose (UA) (NEGATIVE) mg/dL Urine Ketones (NEGATIVE) mg/dL Urine Occult Blood (NEGATIVE) Urine Nitrite (NEGATIVE) Urine Bilirubin (NEGATIVE) Urine Urobilinogen (0.2-1.0) EU/dL Ur Leukocyte Esterase (NEGATIVE) U Hyaline Cast (Auto) (NOT SEEN) /LPF Urine RBC (0-5) /HPF Urine WBC (0-5) /HPF Ethyl Alcohol (0-3) mg/dL Result Diagrams: 06/22/20 00:41 06/22/20 07:56 Sepsis Event Note - Evaluation Sepsis Screening Result: No Definite Risk - Focused Exam Vital Signs: Vital Signs Temp Pulse Resp BP BP BP Pulse Ox 06/22/20 19:49 97.7 F 83 16 127/68 94 L 06/22/20 16:00 99.9 F 92 18 122/77 94 L 06/22/20 12:00 100.4 F 99 18 116/74 94 L 06/22/20 11:35 111/50 L - Problem List & Annotations (1) Quadriceps tendon rupture SNOMED Code(s): 0306117 Code(s): S76.119A - STRAIN OF UNSP QUADRICEPS MUSCLE, FASCIA AND TENDON, INIT Status: Acute Current Visit: Yes Qualifiers: Encounter type: initial encounter Laterality: left Qualified Code(s): S76.112A - Strain of left quadriceps muscle, fascia and tendon, initial encounter (2) Fall down steps SNOMED Code(s): 588120800 Code(s): W10.8XXA - FALL (ON) (FROM) OTHER STAIRS AND STEPS, INITIAL ENCOUNTER Status: Acute Current Visit: Yes Qualifiers: Encounter type: initial encounter Qualified Code(s): W10.8XXA - Fall (on) (from) other stairs and steps, initial encounter (3) Alcohol intoxication SNOMED Code(s): 99075661 Code(s): F10.929 - ALCOHOL USE, UNSPECIFIED WITH INTOXICATION, UNSPECIFIED Status: Acute Current Visit: Yes Qualifiers: Complication of substance-induced condition: uncomplicated Qualified Code(s): F10.920 - Alcohol use, unspecified with intoxication, uncomplicated (4) Withdrawal symptoms, alcohol SNOMED Code(s): 244474077 Code(s): F10.239 - ALCOHOL DEPENDENCE WITH WITHDRAWAL, UNSPECIFIED Status: Acute Current Visit: Yes Qualifiers: Complication of substance-induced condition: uncomplicated Qualified Code(s): F10.230 - Alcohol dependence with withdrawal, uncomplicated - Problem List Review Problem List Initiated/Reviewed/Updated: Yes - My Orders Last 24 Hours: My Active Orders 06/22/20 Cervical Spine wo Cont [CT] Routine 06/22/20 00:28 Head wo Cont [CT] Routine 06/22/20 00:37 Knee 1V or 2V Lt [CR] Stat 06/22/20 01:26 Resuscitation Status Routine 06/22/20 02:55 Acetaminophen [TylenoL] 650 mg PO Q4H PRN HYDROmorphone [Dilaudid] 0.5 mg IVPUSH Q2H PRN Ondansetron [Zofran] 4 mg IV Q6H PRN 06/22/20 02:55 Patient Status [ADT] Routine Cardiac Monitoring [RC] 08,1999 Oxygen Therapy [RC] .PRN Pulse Oximetry [RC] .PRN Up With Assistance [RC] .PRN Vital Signs [RC] 0000,0400,0800,1200,1600,2000 06/22/20 05:14 Antiembolic Devices [RC] 1000,2200 PHAN Hose [Antiembolic Hose] [OM.PC] Routine 06/22/20 07:40 Immobilizer [RC] ASDIRECTED 06/22/20 07:41 PT Evaluation and Treatment [CONS] Routine 06/22/20 Breakfast Regular Diet [DIET] Promethazine [Phenergan] 6.25 mg Sodium Chloride 0.9% [Normal Saline] 50 ml IV Q6H 06/22/20 09:23 Furosemide [Lasix] 40 mg PO DAILY PRN 06/22/20 09:30 Lisinopril/Hydrochlorothiazide [Lisinopril-Hctz 20-25 mg Tab] 0 each PO DAILY allopurinoL [Zyloprim] 100 mg PO DAILY 06/22/20 10:45 atorvaSTATin [Lipitor] 10 mg PO DAILY 06/22/20 11:15 Omeprazole [Omeprazole] 0 mg PO DAILY amLODIPine [Norvasc] 10 mg PO DAILY 06/22/20 11:30 chlordiazePOXIDE [Librium] 10 mg PO TID 06/22/20 14:38 LORazepam [Ativan] 1 mg IVPUSH Q2H PRN 06/23/20 08:00 Pantoprazole [ProTONIX IV] 40 mg IVPUSH Q24H - Assessment Assessment:: Quadriceps Tendon Rupture, Left Chronic Alcohol Abuse Withdrawal symptoms, alcohol Fall down steps - Plan Plan:: Patient has worsening knee pain this morning, described as spasms. Deformity indentation noted to proximal aspect of left knee. Dr. Beverly also examined patient, who feels patient has quadriceps tendon rupture. Did consult with [facility] orthopedics. Initially discussed case with Dr. Skinner, who then recommended patient see Dr. Rosario. Contacted Dr. Kinney office, who set up telephone visit at 1:30 to arrange for surgery. Dr. Skinner recommends immobilizer, WBAT with immobilizer in place, pain management and ice. Discussed that he will need surgery but does not need to be done emergently, so they will arrange for this on outpatient basis. Labs improved. K improved from 3.4 to 3.9 after banana bag. Patient has worsening withdrawal symptoms. Has continued to be nauseated and vomiting. Has tremors to BUE and is feeling more anxious. Will start CIWAs. Start Librium TID and Ativan as needed for breakthrough withdrawal symptoms. Patient will need to be sober to have surgery, so opt to keep another night and start medications to aid in withdrawal process. Discharge plans were discussed with patient's daughters. We will keep patient overnight to assist with withdrawal process and manage patient's pain. Anticipate discharge home tomorrow.
[2020-06-23] MEDS: Acetaminophen/oxyCODONE 325-5 MG Tab PO PRN ×4 (02:45→23:43)
[2020-06-23] MEDS: LORazepam 2 MG/ML Syringe IVPUSH PRN ×3 (04:53→21:53)
[2020-06-23] MEDS: ATORVASTATIN 10 MG PO SCH (07:45)
[2020-06-23] MEDS: LISINOPRIL PO SCH (07:45)
[2020-06-23] MEDS: HYDROCHLOROTHIAZIDE PO SCH (07:45)
[2020-06-23] MEDS: chlordiazePOXIDE 10 MG Cap PO SCH ×3 (07:45→19:45)
[2020-06-23] MEDS: Allopurinol 100 MG Tab **PTOM PO SCH (07:46)
[2020-06-23] MEDS: OMEPRAZOLE 40 MG PO SCH (07:46)
[2020-06-23] MEDS: Pantoprazole 40 MG Vial IVPUSH SCH (07:47)
[2020-06-23] MEDS: Polyethylene Glycol 3350 Powder 17 GM Packet PO SCH (08:22)
[2020-06-23] MEDS: HYDROmorphone 1 MG/ML Syringe IVPUSH PRN (08:22)
--- NOTE | 2020-06-23 08:22 | PCM.PN ---
- General Info Date of Service: 06/23/20 Admission Dx/Problem (Free Text): Fall down steps ETOH Intoxication Left Knee Injury Subjective Update: Duy is a 59 yo male who was admitted observation status to the hospital yesterday evening after sustaining a fall down his steps. He was intoxicated at time of injury. This morning he is having increased pain in his left knee and unable to lift, flex or extend knee. There is indentation just above knee. Did have Dr. Beverly examine patient who reports patient has patellar rupture. PT was consulted and immobilizer placed. Patient reports improvement in pain following placement of immobilizer. He reports he continues to be nauseated and has sta rted with tremors in BUE. He reports feeling anxious. Feels he is already experiencing withdrawal from ETOH. He reports he is otherwise doing ok. Denies pain to any other area. 06-23-2020 Patient admits to ongoing pain in his leg with any movement. Does have difficulty with any movement of his leg, does feel immobilizer helps with support and pain. Has still been using Dilaudid and Percocet for pain. Feels "jittery". Admits to more tremors this am. States does often go 2 weeks or so without alcohol but usually has a few days of "going through withdrawals". Nausea better this am, minimal appetite up to this point though. Urine this am "looks more red". No BM as of yet. Leg is mildly swollen, left great toe is bruised. Has pain with movement of toe. Functional Status: Reports: Pain Controlled (with pain meds), Tolerating Diet. Denies: Ambulating - Review of Systems General: Reports: Weakness, Fatigue HEENT: Reports: No Symptoms Pulmonary: Denies: Shortness of Breath, Cough Cardiovascular: Denies: Chest Pain, Edema, Lightheadedness Gastrointestinal: Reports: Nausea (nausea minimal at this time. Had Zofran at 0400). Denies: Abdominal Pain, Vomiting Genitourinary: Reports: Hematuria Musculoskeletal: Reports: Leg Pain, Foot Pain Skin: Reports: Diaphoresis, Bruising Neurological: Reports: Tremors. Denies: Headache Psychiatric: Reports: Anxiety, Agitation. Denies: Hallucinations - Patient Data Vitals - Most Recent: Last Vital Signs Temp 98.8 F 06/23/20 08:00 Pulse 86 06/23/20 04:30 Resp 18 06/23/20 08:00 BP 136/83 06/23/20 08:00 Pulse Ox 96 06/23/20 08:00 Weight - Most Recent: 253 lb Lab Results Last 24 Hours: Laboratory Results - last 24 hr 06/22/20 Range/Units 00:30 Urine Color Dark yellow (YELLOW) Urine Appearance Slightly cloudy (CLEAR) Urine pH 5.0 (4.5-8.0) Ur Specific [place] 1.020 (1.003-1.020) Urine Protein Negative (NEGATIVE) mg/dL Urine Glucose (UA) Negative (NEGATIVE) mg/dL Urine Ketones Trace H (NEGATIVE) mg/dL Urine Occult Blood Trace-intact H (NEGATIVE) Urine Nitrite Negative (NEGATIVE) Urine Bilirubin Negative (NEGATIVE) Urine Urobilinogen 0.2 (0.2-1.0) EU/dL Ur Leukocyte Esterase Negative (NEGATIVE) U Hyaline Cast (Auto) Many H (NOT SEEN) /LPF Urine RBC 0-5 (0-5) /HPF Urine WBC 0-5 (0-5) /HPF Med Orders - Current: Current Medications Acetaminophen (Tylenol) 650 mg PO Q4H PRN PRN Reason: Pain (Mild 1-3)/fever Allopurinol (Zyloprim) 100 mg PO DAILY [facility] Last Admin: 06/23/20 07:46 Dose: 100 mg Documented by: Amlodipine Besylate (Norvasc) 10 mg PO DAILY [facility] Last Admin: 06/23/20 07:45 Dose: 10 mg Documented by: Atorvastatin Calcium (Lipitor) 10 mg PO DAILY [facility] Last Admin: 06/23/20 07:45 Dose: 10 mg Documented by: Chlordiazepoxide HCl (Librium) 10 mg PO TID [facility] Last Admin: 06/23/20 07:45 Dose: 10 mg Documented by: Furosemide (Lasix) 40 mg PO DAILY PRN PRN Reason: Edema Hydromorphone HCl (Dilaudid) 0.5 mg IVPUSH Q2H PRN PRN Reason: Pain (severe 7-10) Last Admin: 06/22/20 06:35 Dose: 0.5 mg Documented by: Promethazine HCl 6.25 mg/ (Sodium Chloride) 50.25 mls @ 100 mls/hr IV Q6H PRN PRN Reason: Nausea/Vomiting Lorazepam (Ativan) 1 mg IVPUSH Q2H PRN PRN Reason: Withdrawal Symptoms Last Admin: 06/23/20 04:53 Dose: 1 mg Documented by: Lisinopril/Hydrochlorothiazide [Lisinopril-Hctz 20- 25 Mg Tab Ptom 0 each PO DAILY [facility] Last Admin: 06/23/20 07:45 Dose: 1 each Documented by: Omeprazole [ Omeprazole] 40 Mg Cap Ptom 0 mg PO DAILY [facility] Last Admin: 06/23/20 07:46 Dose: 40 mg Documented by: Ondansetron HCl (Zofran) 4 mg IV Q6H PRN PRN Reason: Nausea/Vomiting Last Admin: 06/22/20 06:39 Dose: 4 mg Documented by: Oxycodone/Acetaminophen (Percocet 325-5 Mg) 1 tab PO Q4H PRN PRN Reason: Pain (moderate 4-6) Last Admin: 06/23/20 02:45 Dose: 1 tab Documented by: Pantoprazole Sodium (Protonix Iv) 40 mg IVPUSH Q24H [facility] Last Admin: 06/23/20 07:47 Dose: 40 mg Documented by: Polyethylene Glycol (Miralax) 17 gm PO DAILY [facility] Discontinued Medications Fentanyl (Fentanyl) 50 mcg IVPUSH ONETIME ONE Stop: 06/22/20 01:02 Last Admin: 06/22/20 01:08 Dose: 50 mcg Documented by: Multivitamins/Minerals 10 ml/Folic Acid 1 mg/ Thiamine HCl 100 mg/ Magnesium Sulfate 2 gm / Sodium Chloride 1,015.2 mls @ 100 mls/hr IV ONETIME ONE Stop: 06/22/20 11:28 Last Admin: 06/22/20 02:11 Dose: 100 mls/hr Documented by: Promethazine HCl 6.25 mg/ (Sodium Chloride) 100.25 mls @ 400 mls/hr IV ONETIME ONE Stop: 06/22/20 01:35 Last Admin: 06/22/20 01:35 Dose: 400 mls/hr Documented by: Ketorolac Tromethamine (Toradol) 30 mg IVPUSH Q6H [facility] Stop: 06/27/20 07:39 Last Admin: 06/22/20 08:16 Dose: 30 mg Documented by: Lorazepam (Ativan) 2 mg IVPUSH Q4H PRN PRN Reason: Withdrawal Symptoms Last Admin: 06/22/20 10:05 Dose: 2 mg Documented by: Ondansetron HCl (Zofran) 4 mg IVPUSH NOW STA Stop: 06/22/20 00:50 Last Admin: 06/22/20 00:55 Dose: 4 mg Documented by: Ondansetron HCl (Zofran) Confirm Administered Dose 4 mg .ROUTE .STK-MED ONE Stop: 06/22/20 00:32 Last Admin: 06/22/20 01:11 Dose: Not Given Documented by: Pantoprazole Sodium (Protonix Iv) 40 mg IVPUSH Q24H [facility] Last Admin: 06/22/20 03:23 Dose: 40 mg Documented by: - Exam General: Alert, Oriented HEENT: Mucous Membr. Moist/[place] Neck: Supple Lungs: Clear to Auscultation, Normal Respiratory Effort Cardiovascular: Regular Rate, Regular Rhythm GI/Abdominal Exam: Normal Bowel Sounds, Soft, Non-Tender Extremities: Limited Range of Motion, Other (patient has mild swelling to left lower extremity. Has mass to distal quad/indentation. Bruising noted to left great toe. Pain with movement. ) Skin: Ecchymosis, Other (clammy) Neurological: Other (obvious tremors noted to hands/upper extremities. ) Psy/Mental Status: Anxious, Agitated. No: Hallucinations - Patient Data Lab Results Last 24 hrs: Laboratory Results - last 24 hr 06/22/20 Range/Units 00:30 Urine Color Dark yellow (YELLOW) Urine Appearance Slightly cloudy (CLEAR) Urine pH 5.0 (4.5-8.0) Ur Specific [place] 1.020 (1.003-1.020) Urine Protein Negative (NEGATIVE) mg/dL Urine Glucose (UA) Negative (NEGATIVE) mg/dL Urine Ketones Trace H (NEGATIVE) mg/dL Urine Occult Blood Trace-intact H (NEGATIVE) Urine Nitrite Negative (NEGATIVE) Urine Bilirubin Negative (NEGATIVE) Urine Urobilinogen 0.2 (0.2-1.0) EU/dL Ur Leukocyte Esterase Negative (NEGATIVE) U Hyaline Cast (Auto) Many H (NOT SEEN) /LPF Urine RBC 0-5 (0-5) /HPF Urine WBC 0-5 (0-5) /HPF Result Diagrams: 06/22/20 00:41 06/22/20 07:56 Sepsis Event Note - Evaluation Sepsis Screening Result: No Definite Risk - Focused Exam Vital Signs: Vital Signs Temp Pulse Resp BP BP Pulse Ox 06/23/20 08:00 98.8 F 18 136/83 96 06/23/20 07:45 136/83 06/23/20 04:30 96.3 F L 86 16 134/74 96 06/22/20 23:52 98.0 F 76 16 106/74 95 - Problem List & Annotations (1) Quadriceps tendon rupture SNOMED Code(s): 1497500 Code(s): S76.119A - STRAIN OF UNSP QUADRICEPS MUSCLE, FASCIA AND TENDON, INIT Status: Acute Priority: High Current Visit: Yes Qualifiers: Encounter type: initial encounter Laterality: left Qualified Code(s): S76.112A - Strain of left quadriceps muscle, fascia and tendon, initial encounter (2) Withdrawal symptoms, alcohol SNOMED Code(s): 402987972 Code(s): F10.239 - ALCOHOL DEPENDENCE WITH WITHDRAWAL, UNSPECIFIED Status: Acute Priority: High Current Visit: Yes Qualifiers: Complication of substance-induced condition: uncomplicated Qualified Code(s): F10.230 - Alcohol dependence with withdrawal, uncomplicated - Problem List Review Problem List Initiated/Reviewed/Updated: Yes - My Orders Last 24 Hours: My Active Orders 06/23/20 07:53 Foot 2V Lt [CR] Routine 06/23/20 08:00 polyethylene glycoL 3350 [MiraLAX] 17 gm PO DAILY 06/23/20 08:06 UA RFX TRENT AND CULT IF INDIC [URIN] Routine - Assessment Assessment:: Quadriceps Tendon Rupture, Left Chronic Alcohol Abuse Withdrawal symptoms, alcohol Fall down steps - Plan Plan:: Patient has worsening knee pain this morning, described as spasms. Deformity indentation noted to proximal aspect of left knee. Dr. Beverly also examined patient, who feels patient has quadriceps tendon rupture. Did consult with [facility] orthopedics. Initially discussed case with Dr. Skinner, who then recommended patient see Dr. Rosario. Contacted Dr. Kinney office, who set up telephone visit at 1:30 to arrange for surgery[address] Dr. Skinner recommends immobilizer, WBAT with immobilizer in place, pain management and ice. Discussed that he will need surgery but does not need to be done emergently, so they will arrange for this on outpatient basis. Labs improved. K improved from 3.4 to 3.9 after banana bag. Patient has worsening withdrawal symptoms. Has continued to be nauseated and vomiting. Has tremors to BUE and is feeling more anxious. Will start CIWAs. Start Librium TID and Ativan as needed for breakthrough withdrawal symptoms. Patient will need to be sober to have surgery, so opt to keep another night and start medications to aid in withdrawal process. Discharge plans were discussed with patient's daughters. We will keep patient overnight to assist with withdrawal process and manage patient's pain. Anticipate discharge home tomorrow. 06-23-2020 Patient feeling more agitated and jittery this am. Increase in tremors. CIWA score 13. Does admit that withdrawal symptoms typically occur "a couple days after I quit drinking". Does continue to use Dilaudid and Percocet for pain. Immobilizer intact, has not been up and out of bed much yet to this point. Left great toe xray done, does have distal phalanx fracture. Will place in cast shoe. Much discussion held with family and patient. Does seem to be having more issues this am with withdrawals. Family worried about patient safety at home with DTs, pain and ability to stay sober until surgery. Discussed with UR, able to keep patient to monitor and treat these DTS, pain until discharge for surgery on Sunday.
[2020-06-23] MEDS: Ondansetron 4 MG/2 ML SDV IV PRN (10:24)
[2020-06-23] MEDS: Nicotine 14 MG/24 Hr Patch TRDERM SCH (16:27)
[2020-06-24] MEDS ORDERED: HYDROCHLOROTHIAZIDE PO ONE (06:00)
[2020-06-24] MEDS ORDERED: LISINOPRIL PO ONE (06:00)
[2020-06-24] MEDS: Pantoprazole 40 MG Vial IVPUSH SCH (07:38)
[2020-06-24] MEDS: Nicotine 14 MG/24 Hr Patch TRDERM SCH (07:39)
[2020-06-24] MEDS: Polyethylene Glycol 3350 Powder 17 GM Packet PO SCH (07:40)
[2020-06-24] MEDS: Acetaminophen/oxyCODONE 325-5 MG Tab PO PRN ×3 (07:40→22:13)
[2020-06-24] MEDS: chlordiazePOXIDE 10 MG Cap PO SCH ×3 (07:41→20:05)
[2020-06-24] MEDS: ATORVASTATIN 10 MG PO SCH (07:41)
[2020-06-24] MEDS: OMEPRAZOLE 40 MG PO SCH (07:42)
[2020-06-24] MEDS: Allopurinol 100 MG Tab **PTOM PO SCH (07:44)
[2020-06-24 09:46] LABS: CHLORIDE,CL 99 mEq/L (98-106); SODIUM,NA 138 mEq/L (136-145)
--- NOTE | 2020-06-24 15:26 | PCM.DCSUM1 ---
Discharge Summary - Hospital Course Free Text/Narrative:: Duy is a 59 yo male who was admitted to the hospital from the ED on 06/22/2020 after falling down his steps and sustaining a left quadriceps tendon rupture. He was intoxicated at time of injury and is also a chronic alcoholic. Dr. Rosario, [facility], was consulted and did have phone visit with patient. They recommended WBAT to LLE with immobilizer in place, ice and elevation. Surgery was scheduled for morning of 06/25/2020. On hospital day 1, patient was already exhibiting signs of withdrawal. He reportedly had ran out of alcohol the night prior so his last drink was around 5 pm. We decided to keep him observation status until he was able to be discharged for surgery in attempt to withdrawal from ETOH. He was started on libruim 10 mg TID as well as lorazepam as needed for breakthrough withdrawal symptoms. On hospital day 2, patient was having worsening tremors, N/V, anxiety, tachycardia and sweatiness. On hospital day 3, patients withdrawal symptoms had improved. CIWAs were down to 2. At no time during hospitalization was he hallucinating or agitated. Patient was given Percocet for his pain and knee was kept in an immobilizer. PT was consulted. He did end up developing some left great toe swelling and bruising. Xray was taken, which was negative for fracture. Also developed some urinary incontinence after starting libruim. UA was obtained and was nitrate positive, however at time of discharge preliminary UC was negative. This was thought to be side effect from Libruim. Patient will be discharged home with lorazepam to be used as needed postoperatively. Patient had no additional complaints throughout hospitalization. Labs were stable throughout hospitalization. He will be discharged from facility early tomorrow morning. His daughters will be transporting him to [facility], where Dr. Rosario will be operating surgeon. He is a class 2 ASA medically optimized for surgery. Please use this as preop H & P. He is advised to remain NPO after midnight. - Discharge Data Discharge Date: 06/25/20 Discharge Disposition: Home, Self-Care 01 Condition: Good - Referral to Home Health Date of Face to Face Encounter: 06/24/20 Reason for Homebound Status: Inability to drive due to recent quadriceps tendon rupture-left. This extremity will be in an immobilizer during rehab following surgery tomorrow 06/25/3020. Primary Care Physician: Vaibhav Beyer PA-C Skilled Need: Physical Therapy - Discharge Diagnosis/Problem(s) (1) Quadriceps tendon rupture SNOMED Code(s): 3864436 ICD Code: S76.119A - STRAIN OF UNSP QUADRICEPS MUSCLE, FASCIA AND TENDON, INIT Status: Acute Priority: High Current Visit: Yes Qualifiers: Encounter type: initial encounter Laterality: left Qualified Code(s): S76.112A - Strain of left quadriceps muscle, fascia and tendon, initial encounter (2) Fall down steps SNOMED Code(s): 033698606 ICD Code: W10.8XXA - FALL (ON) (FROM) OTHER STAIRS AND STEPS, INITIAL ENCOUNTER Status: Acute Current Visit: Yes Qualifiers: Encounter type: initial encounter Qualified Code(s): W10.8XXA - Fall (on) (from) other stairs and steps, initial encounter (3) Alcohol intoxication SNOMED Code(s): 62378037 ICD Code: F10.929 - ALCOHOL USE, UNSPECIFIED WITH INTOXICATION, UNSPECIFIED Status: Acute Current Visit: Yes Qualifiers: Complication of substance-induced condition: uncomplicated Qualified Code(s): F10.920 - Alcohol use, unspecified with intoxication, uncomplicated (4) Withdrawal symptoms, alcohol SNOMED Code(s): 939455818 ICD Code: F10.239 - ALCOHOL DEPENDENCE WITH WITHDRAWAL, UNSPECIFIED Status: Acute Priority: High Current Visit: Yes Qualifiers: Complication of substance-induced condition: uncomplicated Qualified Code(s): F10.230 - Alcohol dependence with withdrawal, uncomplicated - Patient Summary/Data Consults: Consultations 06/22/20 07:41 PT Evaluation and Treatment [CONS] Routine - Patient Instructions Diet: NPO (until after surgery 06/25/2020) Activity: Apply Ice, Elevate Extremity, Partial Weight Bearing (WBAT TO LLE WHILE IMMOBILIZER IN PLACE) Notify Provider of: Fever, Increased Pain, Swelling and Redness, Drainage, Nausea and/or Vomiting - Discharge Plan *PRESCRIPTION DRUG MONITORING PROGRAM REVIEWED*: Yes *COPY OF PRESCRIPTION DRUG MONITORING REPORT IN PATIENT ESTEPHANIA: Yes Home Medications: Home Meds allopurinoL [Allopurinol] 100 mg PO DAILY 08/31/13 [History] amLODIPine Besylate [Amlodipine Besylate] 10 mg PO DAILY 08/31/13 [History] Furosemide [Lasix] 40 mg PO DAILY PRN 06/22/20 [History] Lisinopril/Hydrochlorothiazide [Lisinopril-Hctz 20-25 mg Tab] 1 each PO DAILY 06/22/20 [History] Omeprazole 40 mg PO DAILY 06/22/20 [History] atorvaSTATin [Lipitor] 10 mg PO DAILY 06/22/20 [History] Forms: ED Department Discharge Referrals: PCP,None [Ordering Only Provider] - - Discharge Summary/Plan Comment DC Time >30 min.: No - General Info Date of Service: 06/24/20 Admission Dx/Problem (Free Text: Fall down steps ETOH Intoxication Left Knee Injury Subjective Update: Patient reports he is feeling well this morning. He has no complaints. Knee pain is well controlled with Percocet. Has not had BM since admission but denies any abdominal pain. Reports he is through withdrawal. Did have some urinary incontinence issues yesterday. He reports that seems better today. Functional Status: Reports: Pain Controlled, Tolerating Diet, Ambulating, Urinating. Denies: New Symptoms - Review of Systems General: Reports: No Symptoms. Denies: Fever, Weakness, Fatigue, Chills HEENT: Reports: No Symptoms Pulmonary: Reports: No Symptoms Cardiovascular: Reports: No Symptoms Gastrointestinal: Reports: No Symptoms, Constipation. Denies: Abdominal Pain, Decreased Appetite, Nausea, Vomiting Genitourinary: Reports: Incontinence Musculoskeletal: Reports: Leg Pain (left knee & great toe ), Joint Pain (left knee), Joint Swelling (left knee) Skin: Reports: Bruising (left great toe) Neurological: Reports: Tremors (much improved), Difficulty Walking. Denies: Confusion, Dizziness, Headache, Numbness, Tingling, Weakness Psychiatric: Denies: Confusion, Anxiety, Agitation, Hallucinations - Patient Data Vitals - Most Recent: Last Vital Signs Temp 99.2 F 06/24/20 13:57 Pulse 89 06/24/20 11:53 Resp 18 06/24/20 11:53 BP 124/87 06/24/20 11:53 Pulse Ox 96 06/24/20 11:53 Weight - Most Recent: 253 lb Lab Results - Last 24 hrs: Laboratory Results - last 24 hr 06/24/20 06/24/20 06/24/20 Range/Units 07:15 07:15 09:25 WBC 4.5 L (5.0-10.0) 10^3/uL RBC 4.24 L (4.50-6.00) 10^6/uL Hgb 13.6 L (14.0-18.0) g/dL Hct 40.3 (40.0-54.0) % MCV 95.0 H (82.0-94.0) fL MCH 32.1 H (27.0-32.0) pg MCHC 33.7 (33.0-38.0) g/dL RDW Coeff of [place] 13.6 (11.0-15.0) % Plt Count 100 L (150-400) 10^3/uL Neut % (Auto) 60.6 (35-85) % Lymph % (Auto) 20.3 (10-55) % [place] % (Auto) 11.0 (0-16) % Eos % (Auto) 7.7 H (0-5) % Baso % (Auto) 0.4 (0-3) % Neut # (Auto) 2.74 (1.80-7.00) 10^3/uL Lymph # (Auto) 0.92 L (1.00-4.80) 10^3/uL [place] # (Auto) 0.50 (0.00-0.80) 10^3/uL Eos # (Auto) 0.35 (0.00-0.45) 10^3/uL Baso # (Auto) 0.02 10^3/uL Sodium Cancelled 138 Potassium Cancelled 3.5 Chloride Cancelled 99 Carbon Dioxide Cancelled 29 BUN Cancelled 13 Creatinine Cancelled 0.9 Est Cr Clr Drug Dosing Cancelled 97.00 Estimated GFR (MDRD) Cancelled > 60 Glucose Cancelled 118 H Uric Acid 6.3 (3.5-7.2) mg/dL Calcium Cancelled 8.7 Magnesium 1.8 (1.8-2.4) mg/dL Total Bilirubin 2.7 H (0.0-1.0) mg/dL AST 38 H (15-37) U/L ALT 47 (12-78) U/L Alkaline Phosphatase 61 (46-116) U/L C-Reactive Protein 3.7 H (0.2-0.8) mg/dL Total Protein 6.5 (6.4-8.2) g/dL Albumin 3.5 (3.4-5.0) g/dL TRENT Results - Last 24 hrs: Microbiology 06/23/20 08:06 Urine Culture - Preliminary Urine, Voided Med Orders - Current: Current Medications Acetaminophen (Tylenol) 650 mg PO Q4H PRN PRN Reason: Pain (Mild 1-3)/fever Allopurinol (Zyloprim) 100 mg PO DAILY [facility] Last Admin: 06/24/20 07:44 Dose: 100 mg Documented by: Amlodipine Besylate (Norvasc) 10 mg PO DAILY [facility] Last Admin: 06/24/20 07:42 Dose: 10 mg Documented by: Atorvastatin Calcium (Lipitor) 10 mg PO DAILY [facility] Last Admin: 06/24/20 07:41 Dose: 10 mg Documented by: Chlordiazepoxide HCl (Librium) 10 mg PO TID [facility] Last Admin: 06/24/20 13:54 Dose: 10 mg Documented by: Furosemide (Lasix) 40 mg PO DAILY PRN PRN Reason: Edema Hydromorphone HCl (Dilaudid) 0.5 mg IVPUSH Q2H PRN PRN Reason: Pain (severe 7-10) Last Admin: 06/23/20 08:22 Dose: 0.5 mg Documented by: Promethazine HCl 6.25 mg/ (Sodium Chloride) 50.25 mls @ 100 mls/hr IV Q6H PRN PRN Reason: Nausea/Vomiting Lorazepam (Ativan) 1 mg IVPUSH Q2H PRN PRN Reason: Withdrawal Symptoms Last Admin: 06/23/20 21:53 Dose: 1 mg Documented by: Nicotine (Habitrol) 14 mg TRDERM DAILY [facility] Last Admin: 06/24/20 07:39 Dose: 14 mg Documented by: Omeprazole [ Omeprazole] 40 Mg Cap Ptom 0 mg PO DAILY [facility] Last Admin: 06/24/20 07:42 Dose: 40 mg Documented by: Ondansetron HCl (Zofran) 4 mg IV Q6H PRN PRN Reason: Nausea/Vomiting Last Admin: 06/23/20 10:24 Dose: 4 mg Documented by: Oxycodone/Acetaminophen (Percocet 325-5 Mg) 1 tab PO Q4H PRN PRN Reason: Pain (moderate 4-6) Last Admin: 06/24/20 07:40 Dose: 1 tab Documented by: Pantoprazole Sodium (Protonix Iv) 40 mg IVPUSH Q24H [facility] Last Admin: 06/24/20 07:38 Dose: 40 mg Documented by: Polyethylene Glycol (Miralax) 17 gm PO DAILY [facility] Last Admin: 06/24/20 07:40 Dose: 17 gm Documented by: Discontinued Medications Fentanyl (Fentanyl) 50 mcg IVPUSH ONETIME ONE Stop: 06/22/20 01:02 Last Admin: 06/22/20 01:08 Dose: 50 mcg Documented by: Multivitamins/Minerals 10 ml/Folic Acid 1 mg/ Thiamine HCl 100 mg/ Magnesium Sulfate 2 gm / Sodium Chloride 1,015.2 mls @ 100 mls/hr IV ONETIME ONE Stop: 06/22/20 11:28 Last Admin: 06/22/20 02:11 Dose: 100 mls/hr Documented by: Promethazine HCl 6.25 mg/ (Sodium Chloride) 100.25 mls @ 400 mls/hr IV ONETIME ONE Stop: 06/22/20 01:35 Last Admin: 06/22/20 01:35 Dose: 400 mls/hr Documented by: Ketorolac Tromethamine (Toradol) 30 mg IVPUSH Q6H [facility] Stop: 06/27/20 07:39 Last Admin: 06/22/20 08:16 Dose: 30 mg Documented by: Lorazepam (Ativan) 2 mg IVPUSH Q4H PRN PRN Reason: Withdrawal Symptoms Last Admin: 06/22/20 10:05 Dose: 2 mg Documented by: Lisinopril/Hydrochlorothiazide [Lisinopril-Hctz 20- 25 Mg Tab Ptom 0 each PO DAILY [facility] Last Admin: 06/23/20 07:45 Dose: 1 each Documented by: Lisinopril/Hydrochlorothiazide [Lisinopril-Hctz 20- 25 MgOwn Med 1 each PO ONETIME ONE Stop: 06/24/20 06:01 Last Admin: 06/24/20 05:29 Dose: 1 each Documented by: Ondansetron HCl (Zofran) 4 mg IVPUSH NOW STA Stop: 06/22/20 00:50 Last Admin: 06/22/20 00:55 Dose: 4 mg Documented by: Ondansetron HCl (Zofran) Confirm Administered Dose 4 mg .ROUTE .STK-MED ONE Stop: 06/22/20 00:32 Last Admin: 06/22/20 01:11 Dose: Not Given Documented by: Pantoprazole Sodium (Protonix Iv) 40 mg IVPUSH Q24H [facility] Last Admin: 06/22/20 03:23 Dose: 40 mg Documented by: - Exam Quality Assessment: Reports: DVT Prophylaxis General: Reports: Alert, Oriented Neck: Reports: Supple Lungs: Reports: Clear to Auscultation, Normal Respiratory Effort Cardiovascular: Reports: Regular Rate, Regular Rhythm GI/Abdominal Exam: Normal Bowel Sounds, Soft, Non-Tender, No Organomegaly, No Distention, No Abnormal Bruit, No Mass, Pelvis Stable Back Exam: Reports: Normal Inspection, Full Range of Motion Extremities: Normal Capillary Refill, Pedal Edema (LLE 2+ pitting), Limited Range of Motion (unable to extend left knee, unable to lift LLE off bed), Other (tenderness to proximal aspect of left knee) Neurological: Reports: No New Focal Deficit Psy/Mental Status: Reports: Alert, Normal Affect, Normal Mood, Withdrawal Sympto ms (mild )
[2020-06-25] MEDS: Ondansetron 4 MG/2 ML SDV IV PRN (01:45)
[2020-06-25] MEDS: Pantoprazole 40 MG Vial IVPUSH SCH (01:47)
[2020-06-25] MEDS: OMEPRAZOLE 40 MG PO SCH (01:50)
[2020-06-25] MEDS: Acetaminophen/oxyCODONE 325-5 MG Tab PO PRN (01:51)
== END 2020-06-25 02:20 | disposition home or self-care (01) ==
LOC: CC.ED 00:35 → CC.MS 01:25 → UNDOADMOB 02:49
PROVIDERS: ADMIT Nurse Practitioner Family; ATTEND Family Medicine
DX: F10.220 Alcohol dependence with intoxication, uncomplicated (principal); S76.112A Strain of left quadriceps muscle, fascia and tendon, initial encounter; F10.230 Alcohol dependence with withdrawal, uncomplicated; F17.210 Nicotine dependence, cigarettes, uncomplicated; E78.00 Pure hypercholesterolemia, unspecified; M10.9 Gout, unspecified; E87.6 Hypokalemia; Z79.899 Other long term (current) drug therapy; Z98.1 Arthrodesis status; Z98.890 Other specified postprocedural states; W10.8XXA Fall (on) (from) other stairs and steps, initial encounter; Y90.8 Blood alcohol level of 240 mg/100 ml or more
CPT/HCPCS: 36415; 70450; 72125; 73560-LT; 73630-LT; 80048; 80053; 80307; 81001; 81003; 83735; 84550; 85025; 86140; 87086; 96365; 96366; 96367; 96375; 96376; 97161-GP; 97530-GP; 99285-25; A9270-GY; C9113; G0378; J1170; J1885; J2060; J2405; J2550; J3010; J3411; J3475; J3490; J7030

== ENCOUNTER 2020-06-29 14:02 | Inpatient (IN) | payer BC ==
[2020-06-29] MEDS ORDERED: Acetaminophen 325 MG Tab PO PRN (16:19)
[2020-06-29] MEDS ORDERED: Furosemide 40 MG Tab PO PRN (16:26)
[2020-06-29] MEDS: oxyCODONE 5 MG Tab PO PRN ×2 (17:14→22:16)
--- NOTE | 2020-06-29 19:26 | HP ---
CHIEF COMPLAINT: Swing bed admission. HISTORY: Duy is a 59-year-old male with recent fall and subsequent tearing of his quad tendon in his left thigh. He was admitted last week, ultimately transferred, I believe, last Sunday morning for surgical repair and he comes to us now for swing bed admission. The patient denies any complaints other than some pain in his left great toe. He does have a known history of gout, but a uric acid level was done in [place] and this was low end of normal at 4.4. Imaging of the same foot at the time of his initial fall was also negative reported by nursing staff. For the most part other than some muscle spasms in his hamstring on the affected leg during physical therapy, he has been getting along well. He does have pain, but it is well controlled at times with his oxycodone. PAST MEDICAL HISTORY: 1. History of hypertension. 2. Hyperlipidemia. 3. Gout. 4. He is known to have chronic reflux. 5. He has a history of chronic alcohol abuse/dependency. Has had withdrawals in the past. PAST SURGICAL HISTORY: 1. Prior cholecystectomy. 2. Hernia repair. 3. Shoulder surgery. ALLERGIES: NONE. MEDICATIONS: 1. Prilosec 40 mg one daily. 2. Allopurinol 100 mg one daily. 3. Lipitor 10 mg daily. 4. Norvasc 10 mg nightly. 5. Lasix 40 mg daily. 6. Zestoretic 20/ one daily. SOCIAL HISTORY: Patient is . He is recently [place] from [place]. Continues to have a gainfully employment. He is a known user of significant amount of alcohol on a regular basis. FAMILY HISTORY: Noncontributory. REVIEW OF SYSTEMS: As per above. PHYSICAL EXAMINATION: VITAL SIGNS: The patient's vitals are stable. GENERAL: Sitting in a recliner. Pleasant, alert, and cooperative. HEENT: Grossly benign. NECK: Supple. Veins are flat. He has no cervical adenopathy. Lungs: Lung sounds are clear to both bases. CARDIAC: Tones are regular. ABDOMEN: Soft and nontender. Good bowel sounds noted. EXTREMITIES: Right lower extremity benign. Left lower extremity in a knee brace. Dressing is not removed and wound is not evaluated. There is no significant swelling of the leg, although he does have erythema and swelling about the distal foot down through the toes, most notably most tender in the right first MTP joint and very tender consistent with a gouty flare. ASSESSMENT: 1. SWING BED ADMIT STATUS POST QUAD TENDON REPAIR, LEFT LEG. 2. HYPERTENSION. 3. HYPERLIPIDEMIA. 4. CHRONIC ALCOHOL DEPENDENCY. 5. CHRONIC GASTROESOPHAGEAL REFLUX DISEASE, STABLE. 6. GOUT WITH POSSIBLE ACUTE FLARE. PLAN: The patient's orders were put into the chart per [facility] and nursing staff are aware of dressing cares. PT will be consulted for a routine rehab. The patient is nonweightbearing for 6 weeks on the affected leg. Monitoring for any signs of alcohol withdrawal. He is not a great candidate for NSAID use given his recent surgery, and given his relatively low normal uric acid level, we will monitor his toe pain at this point. For complete orders, see admission order forms. CYDNEY/KAYA /[id number]
[2020-06-29] MEDS: Thiamine 100 MG Tab PO SCH (20:05)
[2020-06-29] MEDS: Melatonin 3 MG Tab PO SCH (20:05)
[2020-06-30] MEDS: oxyCODONE 5 MG Tab PO PRN ×5 (02:08→20:15)
[2020-06-30] MEDS: Pantoprazole 40 MG Tab.CR PO SCH (06:15)
[2020-06-30] MEDS: Cyanocobalamin (Vitamin B12) 100 MCG Tab PO SCH (08:58)
[2020-06-30] MEDS: Folic Acid 1 MG Tab PO SCH (08:58)
[2020-06-30] MEDS: Lisinopril 20 MG Tab PO SCH (08:58)
[2020-06-30] MEDS: atorvaSTATin 10 MG Tab PO SCH (08:59)
[2020-06-30] MEDS: amLODIPine 10 MG Tab PO SCH (08:59)
[2020-06-30] MEDS: Hydrochlorothiazide 25 MG Tab PO SCH (08:59)
[2020-06-30] MEDS: Allopurinol 100 MG Tab PO SCH (08:59)
[2020-06-30] MEDS: Polyethylene Glycol 3350 Powder 17 GM Packet PO SCH (09:00)
[2020-06-30] MEDS: Nicotine 14 MG/24 Hr Patch TOP SCH (09:00)
[2020-06-30] MEDS: Cyclobenzaprine 10 MG Tab PO PRN (09:06)
[2020-06-30] MEDS: hydrOXYzine HCl 25 MG Tab PO PRN (11:43)
[2020-06-30] MEDS: Acetaminophen 325 MG Tab PO PRN (15:19)
[2020-06-30] MEDS: Melatonin 3 MG Tab PO SCH (20:04)
[2020-06-30] MEDS: Thiamine 100 MG Tab PO SCH (20:04)
[2020-07-01] MEDS: oxyCODONE 5 MG Tab PO PRN ×3 (01:32→09:44)
[2020-07-01] MEDS: Pantoprazole 40 MG Tab.CR PO SCH (06:23)
[2020-07-01] MEDS: Nicotine 14 MG/24 Hr Patch TOP SCH (07:39)
[2020-07-01] MEDS: Folic Acid 1 MG Tab PO SCH (07:39)
[2020-07-01] MEDS: atorvaSTATin 10 MG Tab PO SCH (07:39)
[2020-07-01] MEDS: Lisinopril 20 MG Tab PO SCH (07:40)
[2020-07-01] MEDS: Allopurinol 100 MG Tab PO SCH (07:40)
[2020-07-01] MEDS: Hydrochlorothiazide 25 MG Tab PO SCH (07:40)
[2020-07-01] MEDS: Cyanocobalamin (Vitamin B12) 100 MCG Tab PO SCH (07:40)
[2020-07-01] MEDS: amLODIPine 10 MG Tab PO SCH (07:40)
[2020-07-01] MEDS: Polyethylene Glycol 3350 Powder 17 GM Packet PO SCH (07:42)
[2020-07-01] MEDS: Cyclobenzaprine 10 MG Tab PO PRN (08:48)
[2020-07-01] MEDS: Aspirin 325 MG Tab.EC PO SCH (11:29)
[2020-07-01] MEDS: Acetaminophen 325 MG Tab PO PRN ×2 (15:21→20:47)
[2020-07-01] MEDS: Thiamine 100 MG Tab PO SCH (19:30)
[2020-07-01] MEDS: hydrOXYzine HCl 25 MG Tab PO PRN (19:37)
[2020-07-01] MEDS: Melatonin 3 MG Tab PO SCH (19:38)
[2020-07-02] MEDS: oxyCODONE 5 MG Tab PO PRN (00:16)
[2020-07-02] MEDS: Acetaminophen 325 MG Tab PO PRN ×3 (05:48→19:36)
[2020-07-02] MEDS: Pantoprazole 40 MG Tab.CR PO SCH (06:27)
[2020-07-02] MEDS: Cyanocobalamin (Vitamin B12) 100 MCG Tab PO SCH (08:00)
[2020-07-02] MEDS: Polyethylene Glycol 3350 Powder 17 GM Packet PO SCH (08:00)
[2020-07-02] MEDS: Nicotine 14 MG/24 Hr Patch TOP SCH (08:00)
[2020-07-02] MEDS: Hydrochlorothiazide 25 MG Tab PO SCH (08:01)
[2020-07-02] MEDS: Lisinopril 20 MG Tab PO SCH (08:01)
[2020-07-02] MEDS: Allopurinol 100 MG Tab PO SCH (08:01)
[2020-07-02] MEDS: Folic Acid 1 MG Tab PO SCH (08:02)
[2020-07-02] MEDS: atorvaSTATin 10 MG Tab PO SCH (08:02)
[2020-07-02] MEDS: Aspirin 325 MG Tab.EC PO SCH (08:02)
[2020-07-02] MEDS: amLODIPine 10 MG Tab PO SCH (08:08)
[2020-07-02] MEDS: Cyclobenzaprine 10 MG Tab PO PRN (09:14)
[2020-07-02] MEDS: Thiamine 100 MG Tab PO SCH (19:32)
[2020-07-02] MEDS: Melatonin 3 MG Tab PO SCH (19:32)
[2020-07-03] MEDS: oxyCODONE 5 MG Tab PO PRN (00:25)
[2020-07-03] MEDS: Pantoprazole 40 MG Tab.CR PO SCH (06:15)
[2020-07-03] MEDS: Cyanocobalamin (Vitamin B12) 100 MCG Tab PO SCH (07:46)
[2020-07-03] MEDS: Polyethylene Glycol 3350 Powder 17 GM Packet PO SCH ×2 (07:47→07:52)
[2020-07-03] MEDS: atorvaSTATin 10 MG Tab PO SCH (07:47)
[2020-07-03] MEDS: Hydrochlorothiazide 25 MG Tab PO SCH (07:47)
[2020-07-03] MEDS: Aspirin 325 MG Tab.EC PO SCH (07:48)
[2020-07-03] MEDS: Folic Acid 1 MG Tab PO SCH (07:48)
[2020-07-03] MEDS: Lisinopril 20 MG Tab PO SCH (07:48)
[2020-07-03] MEDS: Allopurinol 100 MG Tab PO SCH (07:48)
[2020-07-03] MEDS: amLODIPine 10 MG Tab PO SCH (07:48)
[2020-07-03] MEDS: Nicotine 14 MG/24 Hr Patch TOP SCH (07:48)
[2020-07-03] MEDS: Acetaminophen 325 MG Tab PO PRN ×3 (09:03→21:27)
[2020-07-03] MEDS: Melatonin 3 MG Tab PO SCH (19:26)
[2020-07-03] MEDS: Thiamine 100 MG Tab PO SCH (19:26)
[2020-07-04] MEDS: Acetaminophen 325 MG Tab PO PRN ×3 (04:39→22:12)
[2020-07-04] MEDS: Pantoprazole 40 MG Tab.CR PO SCH (06:38)
[2020-07-04] MEDS: Nicotine 14 MG/24 Hr Patch TOP SCH (07:38)
[2020-07-04] MEDS: Polyethylene Glycol 3350 Powder 17 GM Packet PO SCH (07:39)
[2020-07-04] MEDS: Cyanocobalamin (Vitamin B12) 100 MCG Tab PO SCH (07:39)
[2020-07-04] MEDS: atorvaSTATin 10 MG Tab PO SCH (07:40)
[2020-07-04] MEDS: Aspirin 325 MG Tab.EC PO SCH (07:40)
[2020-07-04] MEDS: Allopurinol 100 MG Tab PO SCH (07:41)
[2020-07-04] MEDS: amLODIPine 10 MG Tab PO SCH (07:41)
[2020-07-04] MEDS: Lisinopril 20 MG Tab PO SCH (07:41)
[2020-07-04] MEDS: Hydrochlorothiazide 25 MG Tab PO SCH (07:41)
[2020-07-04] MEDS: Folic Acid 1 MG Tab PO SCH (07:42)
[2020-07-04] MEDS: Cyclobenzaprine 10 MG Tab PO PRN (11:46)
[2020-07-04] MEDS: Thiamine 100 MG Tab PO SCH (19:23)
[2020-07-04] MEDS: Melatonin 3 MG Tab PO SCH (19:23)
[2020-07-05] MEDS: Pantoprazole 40 MG Tab.CR PO SCH (06:12)
[2020-07-05] MEDS: Acetaminophen 325 MG Tab PO PRN ×4 (06:12→21:49)
[2020-07-05] MEDS: Cyanocobalamin (Vitamin B12) 100 MCG Tab PO SCH (07:34)
[2020-07-05] MEDS: amLODIPine 10 MG Tab PO SCH (07:35)
[2020-07-05] MEDS: Folic Acid 1 MG Tab PO SCH (07:35)
[2020-07-05] MEDS: Aspirin 325 MG Tab.EC PO SCH (07:35)
[2020-07-05] MEDS: Lisinopril 20 MG Tab PO SCH (07:36)
[2020-07-05] MEDS: Allopurinol 100 MG Tab PO SCH (07:36)
[2020-07-05] MEDS: atorvaSTATin 10 MG Tab PO SCH (07:36)
[2020-07-05] MEDS: Nicotine 14 MG/24 Hr Patch TOP SCH (07:37)
[2020-07-05] MEDS: Polyethylene Glycol 3350 Powder 17 GM Packet PO SCH ×2 (07:37→07:57)
[2020-07-05] MEDS: Hydrochlorothiazide 25 MG Tab PO SCH (07:38)
[2020-07-05] MEDS: Cyclobenzaprine 10 MG Tab PO PRN ×2 (08:18→17:37)
[2020-07-05] MEDS ORDERED: Polyethylene Glycol 3350 Powder 17 GM Packet PO PRN (09:01)
[2020-07-05] MEDS: Thiamine 100 MG Tab PO SCH (19:38)
[2020-07-05] MEDS: Melatonin 3 MG Tab PO SCH (19:38)
[2020-07-06] MEDS: Acetaminophen 325 MG Tab PO PRN ×4 (06:08→22:47)
[2020-07-06] MEDS: Pantoprazole 40 MG Tab.CR PO SCH (06:08)
[2020-07-06] MEDS: Nicotine 14 MG/24 Hr Patch TOP SCH (08:07)
[2020-07-06] MEDS: Aspirin 325 MG Tab.EC PO SCH (08:07)
[2020-07-06] MEDS: Folic Acid 1 MG Tab PO SCH (08:07)
[2020-07-06] MEDS: atorvaSTATin 10 MG Tab PO SCH (08:07)
[2020-07-06] MEDS: amLODIPine 10 MG Tab PO SCH (08:08)
[2020-07-06] MEDS: Allopurinol 100 MG Tab PO SCH (08:08)
[2020-07-06] MEDS: Hydrochlorothiazide 25 MG Tab PO SCH (08:12)
[2020-07-06] MEDS: Cyanocobalamin (Vitamin B12) 100 MCG Tab PO SCH (08:12)
[2020-07-06] MEDS: Lisinopril 20 MG Tab PO SCH (08:12)
[2020-07-06] MEDS: Cyclobenzaprine 10 MG Tab PO PRN (11:44)
[2020-07-06] MEDS: Melatonin 3 MG Tab PO SCH (19:30)
[2020-07-06] MEDS: Thiamine 100 MG Tab PO SCH (19:30)
[2020-07-06] MEDS: hydrOXYzine HCl 25 MG Tab PO PRN (19:34)
[2020-07-07] MEDS: Pantoprazole 40 MG Tab.CR PO SCH (06:04)
[2020-07-07] MEDS: Cyanocobalamin (Vitamin B12) 100 MCG Tab PO SCH (07:59)
[2020-07-07] MEDS: Nicotine 14 MG/24 Hr Patch TOP SCH (07:59)
[2020-07-07] MEDS: Lisinopril 20 MG Tab PO SCH (08:00)
[2020-07-07] MEDS: Allopurinol 100 MG Tab PO SCH (08:00)
[2020-07-07] MEDS: Hydrochlorothiazide 25 MG Tab PO SCH (08:00)
[2020-07-07] MEDS: atorvaSTATin 10 MG Tab PO SCH (08:00)
[2020-07-07] MEDS: Aspirin 325 MG Tab.EC PO SCH (08:00)
[2020-07-07] MEDS: Folic Acid 1 MG Tab PO SCH (08:00)
[2020-07-07] MEDS: amLODIPine 10 MG Tab PO SCH (08:00)
[2020-07-07] MEDS: Cyclobenzaprine 10 MG Tab PO PRN (09:41)
[2020-07-07] MEDS: Acetaminophen 325 MG Tab PO PRN (09:42)
[2020-07-07] MEDS: Thiamine 100 MG Tab PO SCH (19:32)
[2020-07-07] MEDS: Melatonin 3 MG Tab PO SCH (19:32)
[2020-07-07] MEDS: hydrOXYzine HCl 25 MG Tab PO PRN (19:36)
[2020-07-08] MEDS: Acetaminophen 325 MG Tab PO PRN ×3 (06:22→14:53)
[2020-07-08] MEDS: Pantoprazole 40 MG Tab.CR PO SCH (06:22)
[2020-07-08] MEDS: Nicotine 14 MG/24 Hr Patch TOP SCH (07:43)
[2020-07-08] MEDS: Cyanocobalamin (Vitamin B12) 100 MCG Tab PO SCH (07:44)
[2020-07-08] MEDS: Folic Acid 1 MG Tab PO SCH (07:45)
[2020-07-08] MEDS: atorvaSTATin 10 MG Tab PO SCH (07:45)
[2020-07-08] MEDS: Lisinopril 20 MG Tab PO SCH (07:46)
[2020-07-08] MEDS: Allopurinol 100 MG Tab PO SCH (07:46)
[2020-07-08] MEDS: Hydrochlorothiazide 25 MG Tab PO SCH (07:46)
[2020-07-08] MEDS: amLODIPine 10 MG Tab PO SCH (07:46)
[2020-07-08] MEDS: Aspirin 325 MG Tab.EC PO SCH (07:47)
[2020-07-08] MEDS: Cyclobenzaprine 10 MG Tab PO PRN (08:49)
[2020-07-08] MEDS: hydrOXYzine HCl 25 MG Tab PO PRN (19:16)
[2020-07-08] MEDS: Thiamine 100 MG Tab PO SCH (19:16)
[2020-07-08] MEDS: Melatonin 3 MG Tab PO SCH (19:16)
[2020-07-09] MEDS: Pantoprazole 40 MG Tab.CR PO SCH (06:25)
[2020-07-09 08:08] VITALS: BP 127/85; PULSE 70
[2020-07-09] MEDS: atorvaSTATin 10 MG Tab PO SCH (08:08)
[2020-07-09] MEDS: Allopurinol 100 MG Tab PO SCH (08:09)
[2020-07-09] MEDS: Folic Acid 1 MG Tab PO SCH (08:09)
[2020-07-09] MEDS: Lisinopril 20 MG Tab PO SCH (08:09)
[2020-07-09] MEDS: Cyanocobalamin (Vitamin B12) 100 MCG Tab PO SCH (08:09)
[2020-07-09] MEDS: Hydrochlorothiazide 25 MG Tab PO SCH (08:10)
[2020-07-09] MEDS: Aspirin 325 MG Tab.EC PO SCH (08:10)
[2020-07-09] MEDS: amLODIPine 10 MG Tab PO SCH (08:10)
[2020-07-09] MEDS: Nicotine 14 MG/24 Hr Patch TOP SCH (08:10)
--- NOTE | 2020-07-09 08:28 | PCM.DCSUM1 ---
Discharge Summary - Hospital Course Free Text/Narrative:: Duy is a 59 yo male who was admitted swing bed status 06/29 after a fall in which he sustained a left quadriceps tendon rupture. He is status post repair with Dr. Rosario. Was admitted to swing bed as he is to remain NWB to LLE for duration of 6-12 weeks. Was admitted for PT. Throughout swing bed stay, patient progressed well with PT. They felt he was ready for discharge home. Was to remain in immobilizer with knee in flexion no greater than 30 degrees. Pain was well controlled with OTC pain medications. Initially was using more oxycodone, but throughout stay was able to wean himself off of this. Was using Vistaril at bedtime. This helped him sleep. He was doing well. Strongly encouraged him to refrain from ETOH use. He does not feel he has a problem and is somewhat in denial in regards to this stating "he can go months without drinking." Discussed risk of intoxication and reinjury of knee if he were to fall etc. Will be discharged home with home health care for ongoing therapy and nursing assessment of incision and compliance. He is to remain NWB to LLE until his follow up apt in July with Dr. Rosario. Is advised to continue aspirin for the next 3 weeks. He is advised to follow up with PCP Ag Beyer in the next 1-2 weeks for ongoing care. - Discharge Data Discharge Date: 07/09/20 Discharge Disposition: Home, Self-Care 01 Condition: Good - Referral to Home Health Date of Face to Face Encounter: 07/09/20 Reason for Homebound Status: NWB to LLE for 6-12 weeks, immobilizer in place Primary Care Physician: Vaibhav Beyer PA-C Skilled Need: Patient requires ongoing PT for LLE quadriceps rupture- s/p repair, nursing assessment for incisional monitoring and compliance, and OT for assistane with ADLs. - Discharge Diagnosis/Problem(s) (1) Quadriceps tendon rupture SNOMED Code(s): 0726220 ICD Code: S76.119A - STRAIN OF UNSP QUADRICEPS MUSCLE, FASCIA AND TENDON, INIT Status: Acute Priority: High Problem Details: s/p repair Qualifiers: Encounter type: subsequent encounter Laterality: left Qualified Code(s): S76.112D - Strain of left quadriceps muscle, fascia and tendon, subsequent encounter (2) EtOH dependence SNOMED Code(s): 24851695 ICD Code: F10.20 - ALCOHOL DEPENDENCE, UNCOMPLICATED Status: Acute Qualifiers: Substance use status: in remission Qualified Code(s): F10.21 - Alcohol dependence, in remission - Patient Summary/Data Consults: Consultations 06/29/20 16:26 Consult to Physical Therapy [PT Evaluation and Treatment] [CONS] Routine - Patient Instructions Diet: Usual Diet as Tolerated Activity: Elevate Extremity, Non Weight Bearing (LLE) Notify Provider of: Fever, Increased Pain, Swelling and Redness, Drainage - Discharge Plan *PRESCRIPTION DRUG MONITORING PROGRAM REVIEWED*: Yes *COPY OF PRESCRIPTION DRUG MONITORING REPORT IN PATIENT ESTEPHANIA: Yes Prescriptions/Med Rec: Aspirin [Ecotrin EC] 325 mg PO DAILY 21 Days #21 tab.ec Cyclobenzaprine [Flexeril] 5 mg PO TID PRN #30 tablet PRN Reason: Muscle Spasm Folic Acid 1 mg PO DAILY #90 tablet hydrOXYzine HCL [hydrOXYzine] 25 mg PO Q6H PRN #30 tablet PRN Reason: Anxiety Melatonin 3 mg PO BEDTIME #90 tablet oxyCODONE 10 mg PO Q8H PRN #30 tablet PRN Reason: Breakthrough Pain Docusate Sodium/Sennosides [Senna Plus] 1 tab PO BEDTIME PRN #30 tablet PRN Reason: Constipation Thiamine [Vitamin B-1] 100 mg PO BEDTIME #90 tablet Cyanocobalamin (Vitamin B12) [Vitamin B12] 250 mcg PO DAILY 90 Days #90 tablet Home Medications: Home Meds allopurinoL [Allopurinol] 100 mg PO DAILY 08/31/13 [History] amLODIPine Besylate [Amlodipine Besylate] 10 mg PO DAILY 08/31/13 [History] Furosemide [Lasix] 40 mg PO DAILY PRN 06/22/20 [History] Lisinopril/Hydrochlorothiazide [Lisinopril-Hctz 20-25 mg Tab] 1 each PO DAILY 06/22/20 [History] Omeprazole 40 mg PO DAILY 06/22/20 [History] atorvaSTATin [Lipitor] 10 mg PO DAILY 06/22/20 [History] Acetaminophen 650 mg PO Q4H PRN 06/29/20 [History] Nicotine [Habitrol] 14 mg TOP DAILY 06/29/20 [History] Aspirin [Ecotrin EC] 325 mg PO DAILY 21 Days #21 tab.ec 07/09/20 [Rx] Cyanocobalamin (Vitamin B12) [Vitamin B12] 250 mcg PO DAILY 90 Days #90 tablet 07/09/20 [Rx] Cyclobenzaprine [Flexeril] 5 mg PO TID PRN #30 tablet 07/09/20 [Rx] Docusate Sodium/Sennosides [Senna Plus] 1 tab PO BEDTIME PRN #30 tablet 07/09/20 [Rx] Folic Acid 1 mg PO DAILY #90 tablet 07/09/20 [Rx] Melatonin 3 mg PO BEDTIME #90 tablet 07/09/20 [Rx] Thiamine [Vitamin B-1] 100 mg PO BEDTIME #90 tablet 07/09/20 [Rx] hydrOXYzine HCL [hydrOXYzine] 25 mg PO Q6H PRN #30 tablet 07/09/20 [Rx] oxyCODONE 10 mg PO Q8H PRN #30 tablet 07/09/20 [Rx] polyethylene glycoL 3350 [MiraLAX] 17 gm PO DAILY PRN #30 pack 07/09/20 [Rx] Patient Handouts: Alcohol Abuse and Dependence Information, Adult Referrals: Taj Beverly MD [ED Physician] - - Discharge Summary/Plan Comment DC Time >30 min.: No - General Info Date of Service: 07/09/20 Admission Dx/Problem (Free Text: Left Quadriceps Tendon Rupture s/p repair ETOH Dependency Subjective Update: Patient reports he is doing well. Feels he will be fine living alone at home. Was able to do steps with PT today. He reports pain has been well controlled. No complaints today. Functional Status: Reports: Pain Controlled, Tolerating Diet, Ambulating, Urin ating. Denies: New Symptoms - Review of Systems General: Reports: No Symptoms HEENT: Reports: No Symptoms Pulmonary: Reports: No Symptoms Cardiovascular: Reports: No Symptoms Gastrointestinal: Reports: No Symptoms Genitourinary: Reports: No Symptoms Musculoskeletal: Reports: No Symptoms Skin: Reports: No Symptoms Neurological: Reports: No Symptoms Psychiatric: Reports: No Symptoms - Patient Data Vitals - Most Recent: Last Vital Signs Temp 97.0 F 07/09/20 08:00 Pulse 70 07/09/20 08:00 Resp 18 07/09/20 08:00 BP 127/85 07/09/20 08:10 Pulse Ox 98 07/09/20 08:00 Weight - Most Recent: 255 lb 11.2 oz Med Orders - Current: Current Medications Acetaminophen (Acetaminophen 325 Mg Tab) 650 mg PO Q4H PRN PRN Reason: Pain Last Admin: 07/08/20 14:53 Dose: 650 mg Documented by: Allopurinol (Allopurinol 100 Mg Tab) 100 mg PO DAILY [facility] Last Admin: 07/09/20 08:09 Dose: 100 mg Documented by: Amlodipine Besylate (Amlodipine 10 Mg Tab) 10 mg PO DAILY [facility] Last Admin: 07/09/20 08:10 Dose: 10 mg Documented by: Aspirin (Aspirin 325 Mg Tab.Ec) 325 mg PO DAILY [facility] Last Admin: 07/09/20 08:10 Dose: 325 mg Documented by: Atorvastatin Calcium (Atorvastatin 10 Mg Tab) 10 mg PO DAILY [facility] Last Admin: 07/09/20 08:08 Dose: 10 mg Documented by: Cyanocobalamin (Cyanocobalamin (Vitamin B12) 100 Mcg Tab) 250 mcg PO DAILY [facility] Last Admin: 07/09/20 08:09 Dose: 250 mcg Documented by: Cyclobenzaprine HCl (Cyclobenzaprine 10 Mg Tab) 5 mg PO TID PRN PRN Reason: Muscle Spasm Last Admin: 07/08/20 08:49 Dose: 5 mg Documented by: Folic Acid (Folic Acid 1 Mg Tab) 1 mg PO DAILY [facility] Last Admin: 07/09/20 08:09 Dose: 1 mg Documented by: Furosemide (Furosemide 40 Mg Tab) 40 mg PO DAILY PRN PRN Reason: Edema Hydrochlorothiazide (Hydrochlorothiazide 25 Mg Tab) 25 mg PO DAILY [facility] Last Admin: 07/09/20 08:10 Dose: 25 mg Documented by: Hydroxyzine HCl (Hydroxyzine Hcl 25 Mg Tab) 25 mg PO Q6H PRN PRN Reason: Anxiety Last Admin: 07/08/20 19:16 Dose: 25 mg Documented by: Lisinopril (Lisinopril 20 Mg Tab) 20 mg PO DAILY [facility] Last Admin: 07/09/20 08:09 Dose: 20 mg Documented by: Melatonin (Melatonin 3 Mg Tab) 3 mg PO BEDTIME [facility] Last Admin: 07/08/20 19:16 Dose: 3 mg Documented by: Nicotine (Nicotine 14 Mg/24 Hr Patch) 14 mg TOP DAILY [facility] Last Admin: 07/09/20 08:10 Dose: 14 mg Documented by: Oxycodone HCl (Oxycodone 5 Mg Tab) 10 mg PO Q4H PRN PRN Reason: Breakthrough Pain Last Admin: 07/03/20 00:25 Dose: 10 mg Documented by: Pantoprazole Sodium (Pantoprazole 40 Mg Tab.Cr) 40 mg PO ACBRK [facility] Last Admin: 07/09/20 06:25 Dose: 40 mg Documented by: Polyethylene Glycol (Polyethylene Glycol 3350 Powder 17 Gm Packet) 17 gm PO DAILY PRN PRN Reason: Constipation Senna/Docusate Sodium (Docusate Sodium/Sennosides 50-8.6 Mg Tab) 1 tab PO BEDTIME [facility] Last Admin: 07/08/20 19:16 Dose: 1 tab Documented by: Thiamine HCl (Thiamine 100 Mg Tab) 100 mg PO BEDTIME [facility] Last Admin: 07/08/20 19:16 Dose: 100 mg Documented by: Discontinued Medications Acetaminophen (Acetaminophen 325 Mg Tab) 650 mg PO Q4H PRN PRN Reason: analgesia/fever Polyethylene Glycol (Polyethylene Glycol 3350 Powder 17 Gm Packet) 17 gm PO DAILY [facility] Last Admin: 07/05/20 07:57 Dose: Not Given Documented by: - Exam Quality Assessment: Reports: DVT Prophylaxis General: Reports: Alert, Oriented, No Acute Distress Neck: Reports: Supple Lungs: Reports: Clear to Auscultation, Normal Respiratory Effort Cardiovascular: Reports: Regular Rate, Regular Rhythm GI/Abdominal Exam: Normal Bowel Sounds, Soft, Non-Tender, No Organomegaly, No Distention, No Abnormal Bruit, No Mass, Pelvis Stable Back Exam: Reports: Normal Inspection, Full Range of Motion Extremities: No Pedal Edema, Normal Capillary Refill, Other (LLE in immobilizer) Wound/Incisions: Reports: Dressing Dry and Intact, No Drainage Neurological: Reports: No New Focal Deficit Psy/Mental Status: Reports: Alert, Normal Affect, Normal Mood
== END 2020-07-09 15:01 | disposition home or self-care (01) | DRG 862 ==
LOC: CC.MS 16:19 → UNDOADMIN 16:29 → CC.MS 16:29
PROVIDERS: ADMIT Family Medicine; ATTEND Family Medicine
DX: Z48.89 Encounter for other specified surgical aftercare (principal); I10 Essential (primary) hypertension; E78.5 Hyperlipidemia, unspecified; F10.20 Alcohol dependence, uncomplicated; M10.9 Gout, unspecified; K21.9 Gastro-esophageal reflux disease without esophagitis; Z90.49 Acquired absence of other specified parts of digestive tract; Z98.890 Other specified postprocedural states
CPT/HCPCS: 36415; 84550; 97110-GP; 97116-GP; 97161-GP; 97530-GP; A9270-GY

== ENCOUNTER 2025-01-09 09:48 | Day surgery (SDC) | payer BC ==
[2025-01-09] MEDS: Lactated Ringers 1,000 ML IV SCH (10:10)
[2025-01-09] MEDS ORDERED: Propofol 200 MG/20 ML SDV ONE ×2 (10:15)
[2025-01-09] MEDS ORDERED: Ketamine 200 MG/20 ML MDV ONE (10:15)
[2025-01-09] MEDS ORDERED: Midazolam 1 MG/ML 2 ML SDV ONE (10:15)
[2025-01-09] MEDS ORDERED: fentaNYL 50 MCG/ML SDV ONE (10:15)
== END 2025-01-09 11:20 | disposition home or self-care (01) ==
LOC: CC.SDS 09:48
PROVIDERS: ATTEND Family Medicine
DX: Z12.11 Encounter for screening for malignant neoplasm of colon (principal); D12.8 Benign neoplasm of rectum; K63.5 Polyp of colon; K57.30 Diverticulosis of large intestine without perforation or abscess without bleeding; I10 Essential (primary) hypertension; E78.00 Pure hypercholesterolemia, unspecified; K21.9 Gastro-esophageal reflux disease without esophagitis; E66.9 Obesity, unspecified; Z68.37 Body mass index [BMI] 37.0-37.9, adult; Z79.899 Other long term (current) drug therapy
CPT/HCPCS: 00811; 45385; J2250; J2704; J3010; J3490; J7120